=== PATIENT | female | born 1990 | race Caucasian/White ===

== ENCOUNTER → 2020-06-22 | Outpatient (REF) | payer OTHER ==
[~2020-06-22] MED LIST: ASPI81TA26 PO; PRENTAB53 PO; VITA-243 PO; progesterone supp VG
[2020-06-23 12:51] LABS: CHLAMYDIA DNA AMPLIFICATION NEGATIVE (NEGATIVE); GC DNA AMPLIFICATION NEGATIVE (NEGATIVE)
== END ==
LOC: M SFHCWAGY 10:37
PROVIDERS: ATTEND Advanced Practice Midwife
DX: Z11.3 Encounter for screening for infections with a predominantly sexual mode of transmission (principal); Z3A.11 11 weeks gestation of pregnancy
CPT/HCPCS: 87086; 87491; 87591; G0463

== ENCOUNTER → 2020-06-27 | Outpatient (REF) | payer OTHER ==
[2020-06-27 15:52] LABS: HEMOGLOBIN A1c 4.8 %
== END ==
LOC: M PLALAB 08:42
PROVIDERS: ATTEND Advanced Practice Midwife
DX: O09.291 Supervision of pregnancy with other poor reproductive or obstetric history, first trimester (principal); Z3A.00 Weeks of gestation of pregnancy not specified
CPT/HCPCS: 36415; 82950; 83036; G0463

== ENCOUNTER → 2020-07-09 | Outpatient (CLI) | payer OTHER | LOC: M LABSMTC 08:57 | PROVIDERS: ATTEND Anesthesiology | DX: Z01.812 Encounter for preprocedural laboratory examination (principal); Z20.822 Contact with and (suspected) exposure to COVID-19 ==

== ENCOUNTER 2020-07-14 08:09 | Day surgery (SDC) | payer OTHER ==
[~2020-07-14] VITALS: Ht 175.3 cm; Wt 77.6 kg
[~2020-07-14 08:09] MED LIST changes: +LIDOCAINE 1% MDV 20ML VIAL SQ PRN; +LIDOCAINE 2% 100MG/5ML SDV (FOR ANES.) As Ordered ONE; +LR 1,000 ML IV ONE; +fentaNYL 100 MCG/2 ML INJECTION (J3010) As Ordered ONE; +propofoL 200 MG/20 ML VIAL As Ordered ONE
[2020-07-14 09:01] LABS: HEMATOCRIT 35.9 % (36.0-47.0); HEMOGLOBIN 11.8 g/dl (12.0-15.5); MEAN CORPUSCULAR HEMOGLOBIN 28.8 pg (27.0-33.0); MEAN CORPUSCULAR HGB CONC 32.9 g/dl (32.0-36.5); MEAN CORPUSCULAR VOLUME 87.6 fl (80.0-96.0); PLATELET COUNT, AUTOMATED 242 10^3/uL (150-450); WHITE BLOOD COUNT 6.8 10^3/uL (4.0-10.0)
[2020-07-14] MEDS ORDERED: LIDOCAINE 1% SDV 30ML VIAL As Ordered ONE (09:05)
[2020-07-14] MEDS ORDERED: ONDANSETRON 4MG/2ML VIAL As Ordered ONE (09:40)
--- NOTE | 2020-07-14 09:41 | ROOPDOC ---
[facility] Report Of Operation Report of Operation DATE OF PROCEDURE: 07/14/2020 PREPROCEDURE DIAGNOSES: History of cervical insufficiency and . Currently 14+ weeks EGA POSTPROCEDURE DIAGNOSES: same PROCEDURE: Jang cerclage (history-indicated). 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 ESTIMATED BLOOD LOSS: 10 mL IV FLUIDS: 400 mL LR URINE OUTPUT: 10 mL (in and out catheter) FINDINGS: Approx 1.5cm cervical length in the vagina. Closed cervix. Cerclage knot at 12 o'clock at the level of the cervicovaginal junction. heart rate pre- and post-cerclage was 150bpm and 138bpm, respectively. PROCEDURE: The patient was counseled and consented on risks, benefits, indications and alternatives of the procedure. Informed consent was obtained. She was taken to the operating room with an IV running. She was moved to the operating table where IV/MAC anesthesia was administered without any difficulty. She was placed in the high lithotomy position. She was prepared and draped in the typical sterile fashion. A time out was performed per protocol. Attention was turned to the pelvis. The bladder was drained with in and out sterile catheter. A speculum was placed with good visualization of the cervix. Ring forceps were used at the anterior lip of the cervix to manipulate the cervix. Using 1-Prolene suture w/ CTX needle, a pursestring stitch was placed around the cervix at the level of the cervicovaginal junction. The knot was tied at 12:00. Minimal bleeding from the cervix was noted. There was no evidence of ruptured membranes. Holding pressure against the cervix with a sponge stick, the bleeding from the cervix ceased. All instruments were removed from the vagina. A sterile digital vaginal exam revealed a closed , thick cervix with less than a fingertip dilation (less than 1 cm). Sponge, needle and instrument counts were correct per protocol. She tolerated the entire procedure very well. She was transferred to the PACU in good and stable condition. DO GOLDIE Abraham JONATHAN R. DO Jul 14, 2020 09:41
[2020-07-14] MEDS ORDERED: LR 1,000 ML IV SCH (10:30)
[2020-07-14] MEDS ORDERED: fentaNYL 100 MCG/2 ML INJECTION (J3010) IV PRN (10:30)
[2020-07-14] MEDS ORDERED: ONDANSETRON 4MG/2ML VIAL IV PRN (10:30)
[2020-07-14 10:36] VITALS: BP 110/78
== END 2020-07-14 10:43 | disposition home or self-care (01) ==
LOC: M SDC 08:09
PROVIDERS: ATTEND Obstetrics & Gynecology
DX: O34.32 Maternal care for cervical incompetence, second trimester (principal); Z3A.14 14 weeks gestation of pregnancy
CPT/HCPCS: 36415; 59320; 85027; 86850; 86900; 86901; J3010

== ENCOUNTER → 2020-08-28 | Outpatient (CLI) | payer OTHER ==
[~2020-08-28] MED LIST changes: -LIDOCAINE 1% MDV 20ML VIAL SQ PRN; -LIDOCAINE 2% 100MG/5ML SDV (FOR ANES.) As Ordered ONE; -LR 1,000 ML IV ONE; -fentaNYL 100 MCG/2 ML INJECTION (J3010) As Ordered ONE; -propofoL 200 MG/20 ML VIAL As Ordered ONE
--- NOTE | 2020-08-29 05:36 | REP ---
INDICATION: ANATOMY COMPARISON: None. TECHNIQUE: Transabdominal obstetrical ultrasound with color Doppler evaluation. FINDINGS: Examination demonstrates a single live intrauterine in cephalic presentation. motion is identified by technologist. Placenta is noted posterior and grade 0 without evidence for placenta previa or abruption. Amniotic fluid volume is normal. Cervix measures 3.1 cm in length and appears closed.. Gestational age by LMP 21 weeks 1 day with JOSSE 01/07/2021. Gestational age by current measurements 21 weeks 6 days with JOSSE 01/02/2021. FHR equals 146 beats per minute. BPD: 5.4 cm at 22 weeks 2 days HC: 19.9 cm at 22 weeks 1 day AC: 16.9 cm at 21 weeks 6 days FL: 3.6 cm at 21 weeks 3 days HL: 3.4 cm at 21 weeks 3 days HC/AC: 1.18 Estimated weight 448 grams (77thpercentile). Anatomical assessment demonstrates normal structures including cranium, choroid plexus, cavum, cerebellum/posterior fossa, facial features, lungs, four-chamber heart/ventricular outflow tracts, diaphragm, stomach, cord insertion/three-vessel cord, kidneys/bladder, spine, and extremities. Echogenic focus within the left cardiac ventricle likely prominent chordae tendineae. IMPRESSION: Essentially normal examination as described above. <Electronically signed by Stanford Segal > 08/29/20 [id number]
== END ==
LOC: M WHC 14:33
PROVIDERS: ATTEND Obstetrics & Gynecology
DX: O09.292 Supervision of pregnancy with other poor reproductive or obstetric history, second trimester (principal); Z3A.21 21 weeks gestation of pregnancy

== ENCOUNTER → 2020-10-04 | Outpatient (REF) | payer OTHER ==
[2020-10-04 13:27] LABS: HEMATOCRIT 32.4 % (36.0-47.0); HEMOGLOBIN 10.5 g/dl (12.0-15.5); MEAN CORPUSCULAR HEMOGLOBIN 30.7 pg (27.0-33.0); MEAN CORPUSCULAR HGB CONC 32.4 g/dl (32.0-36.5); MEAN CORPUSCULAR VOLUME 94.7 fl (80.0-96.0); PLATELET COUNT, AUTOMATED 236 10^3/uL (150-450); RED BLOOD COUNT 3.42 10^6/uL (4.00-5.40)
== END ==
LOC: M PLALAB 09:35
PROVIDERS: ATTEND Obstetrics & Gynecology
DX: O09.292 Supervision of pregnancy with other poor reproductive or obstetric history, second trimester (principal)

== ENCOUNTER → 2020-11-27 | Outpatient (CLI) | payer OTHER ==
--- NOTE | 2020-11-27 13:21 | REP ---
INDICATION: POOR REPRODUCTIVE HX,HX DELIVERY,GROWTH COMPARISON: 08/28/2020 TECHNIQUE: Transabdominal obstetrical ultrasound with color Doppler evaluation. FINDINGS: Examination demonstrates a single live intrauterine in cephalic presentation. motion is identified by technologist. Placenta is noted posterior and grade 1 without evidence for placenta previa or abruption. Amniotic fluid volume is normal. Cervix measures 3.7 cm in length and appears closed. Selected gestational age: 34 weeks 1 day with JOSSE 01/07/2021. Gestational age by current measurements 35 weeks 0 days with JOSSE 01/01/2021. FHR equals 146 beats per minute. Estimated weight 2561 grams (69thpercentile). ZACKARY: 17.8 cm (8.1-24.8) Umbilical artery SD ratio: 2.63 (1.72-3.67). IMPRESSION: Single live intrauterine in cephalic presentation. No gross abnormalities are identified. <Electronically signed by Stanford Segal > 11/27/20 [id number]
== END ==
LOC: M WHC 12:20
PROVIDERS: ATTEND Obstetrics & Gynecology
DX: O09.293 Supervision of pregnancy with other poor reproductive or obstetric history, third trimester (principal)

== ENCOUNTER → 2020-12-06 | Outpatient (REF) | payer OTHER | LOC: M SFHCWAGY 13:03 | PROVIDERS: ATTEND Advanced Practice Midwife | DX: O09.293 Supervision of pregnancy with other poor reproductive or obstetric history, third trimester (principal) ==

== ENCOUNTER 2021-01-01 08:54 | Inpatient (IN) | payer OTHER ==
[~2021-01-01] VITALS: Ht 175.3 cm; Wt 105.6 kg
[2021-01-01] VITALS (36 sets, daily range): BP systolic 117–174; BP diastolic 57–94
[~2021-01-01 08:54] MED LIST changes: +DOCU-153 PO; +PROG1CAP9 PO; +TUMS500C PO
[2021-01-01] MEDS ORDERED: HOME MED LIST COMPLETE! XX SCH (09:30)
[2021-01-01] MEDS ORDERED: LACTATED RINGER'S 1000 ML IV STA (10:11)
[2021-01-01] MEDS ORDERED: METHYLERGONOVINE MALEATE 0.2 MG/ML VIAL (J2210) IM PRN (10:15)
[2021-01-01] MEDS ORDERED: LIDOCAINE 1% MDV 20ML VIAL INFIL PRN (10:15)
[2021-01-01] MEDS ORDERED: CARBOPROST TROMETHAMINE 250 MCG/ML AMP IM PRN (10:15)
[2021-01-01] MEDS ORDERED: TRANEXAMIC ACID INJection 1,000 MG in NS 100 ML IV PRN (10:15)
[2021-01-01] MEDS ORDERED: OXYTOCIN DRIP 30 UNITS in IV 1 EA IV PRN (10:15)
[2021-01-01 11:07] LABS: HEMATOCRIT 30.3 % (36.0-47.0); HEMOGLOBIN 9.9 g/dl (12.0-15.5); MEAN CORPUSCULAR HEMOGLOBIN 29.1 pg (27.0-33.0); MEAN CORPUSCULAR HGB CONC 32.7 g/dl (32.0-36.5); MEAN CORPUSCULAR VOLUME 89.1 fl (80.0-96.0); PLATELET COUNT, AUTOMATED 183 10^3/uL (150-450); WHITE BLOOD COUNT 8.5 10^3/uL (4.0-10.0)
--- NOTE | 2021-01-01 12:05 | HPEPDOC ---
Obstetrical History & Physical General Date of Admission Jan 01, 2021 at 08:54 Primary Care Physician: HONORIO CADET CNM History of Present Illness Madonna is a 30-year-old female who is at 39.1 weeks gestation with an JOSSE of 01/07/21 based off of her first trimester ultrasound. Her has bee n complicated by a history of a delivery due to cervical insufficiency at 30.4 weeks. She had a cerclage placed at 14 weeks this and removed at 36 weeks. She has also been using ASA 81 mg and vaginal progesterone. She presents for an elective IOL today. She reports active movement and regular contractions. Denies vaginal bleeding or leaking of fluid. Chief Complaint: Contractions, term, Induction of labor Information Provided By: Patient Age: 30 : 2 Term: 0 Pre-term: 1 Abortions: 0 Livin Care Care: Good Care Dating Final EDC: Jan 07, 2021 Final EDC by: 1st trimester (US) EGA at Admission: 39.1 Antepartum Course Diagnos(e)s history of delivery due to cervical insufficiency Cerclage placed in early second trimester. Height (inches): 69 Admission Weight (lbs.): 231 Past Medical History Past Obstetrical History : Past Obstetrical History: Primgravida Date of Delivery: Feb 25, 2019 Gestation: 30.4 Type of Delivery: Spontaneous Vaginal Del. 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 Past Medical History Medical History PCOS GERD Hyperplasia in 2014 resolved with D&C Borderline diabetic Surgical History: Dilatation and Curettage, Other (right knee surgery) Family History Significant Family History: Cancer (ovarian), Diabetes, Hypertension Social History Marital Status: Family situation: Spouse/partner home Psychosocial History: No pertinent psych hx * Smoker: non-smoker Alcohol: Denies Drugs: denies Abuse Violence Screening Have you been hit/kicked/slapp: No Have you been sexually assault: No Allergies Coded Allergies: Squash (Verified Allergy, Severe, throat closed, face red, 07/05/20) Uncoded Allergies: ZUCCHINI (Allergy, Severe, throat closes, red face, 07/05/20) Medications Scheduled Aspirin (Aspirin EC) 81 Mg Tablet.dr, 81 MG PO DAILY Calcium Carbonate (Tums) 200 Mg Tab.chew, 2 TAB PO QID for cough and congestion Docusate Sodium (Stool Softener) 100 Mg Capsule, 100 MG PO DAILY Vit,Calc76/Iron/Folic (Prenatabs Rx Tablet) 1 Each Tablet, 1 TAB PO DAILY Progesterone, Micronized (Progesterone) 200 Mg Capsule, 200 MG PO QPM Physical Examination Physical Examination GENERAL: Alert and oriented times three. BREAST: . ABDOMEN: Gravid and non-tender to touch. FETUS: Is vertex (VTX) by sterile vaginal examination (SVE), fetus is vertex (VTX) by Zane. HEART RATE: Regular rate and rhythm. LUNGS: Clear to auscultation (CTA). EXTREMITIES: No edema. No clonus. Deep tendon reflexes (DTRs) + . Vital Signs/I&O Vital Signs Date Time Temp Pulse Resp B/P (MAP) Pulse Ox O2 Delivery O2 Flow Rate FiO2 01/01/21 10:40 71 18 141/84 (103) 01/01/21 09:25 98.0 Laboratory Data 24H LABS Laboratory Tests 2 01/01/21 10:38: Serology Scanned Report Hepatitis B Testing 01/01/21 10:51: Nucleated Red Blood Cells % (auto) 0.0 CBC/BMP Laboratory Tests 01/01/21 10:51 Urine Culture: No Growth Pertinent Laboratoy Data Blood Type: A+ RBC Antibody Screen: Negative HIV: Negative Hepatitis B: Negative Hepatitis C: Negative Rapid Plasma Reagin: Nonreactive Rubella: Immune Chlamydia/Gonorrhea: Negative Group B Streptococcus: Negative Glucose Tolerance Test: 105 Anatomy Ultrasound Ultrasound Date: Nov 27, 2020 Placenta Location: Posterior Normal Anatomy: Yes Placenta Previa: No Estimated Weight (grams): 2561 Vaginal Examination Dilation: 4 cm Effacement: 80% Station: -1 Cervical Consistency: Soft Cervical Position: Middle Presentation: Cephalic presentation Assessment Heart Rate (FHR): 140 Variability: Moderate Accelerations: Positive Decelerations: None Tocometer Contractions: Yes Frequency: regular Multi-drug resistant Organism: No history of MDRO Assessment/Plan Assessment IUP at 39.1 weeks gestation Category I FHR tracing GBS negative elective induction of labor Plan Admit to L&D. OOB ad jennifer. Diet: regular diet now then change to clears if IV Pitocin is started or patient desires epidural. . Group B Streptococcus (GBS) negative. Labs and intravenous (IV) per unit protocol. Counseled on options for AROM vs IV Pitocin for induction of labor due to current contractions and cervical exam. Patient requested AROM. AROM to a scan amount of meconium fluid. Dr. Velasco notified of meconium. Anesthesia consult per patient's request. Lactated Ringers (LR): Bolus 800 mL prior to epidural, then at 125 mL/hr. Anticipate cervical change and . C-S as appropriate. HONORIO CADET CNM Jan 01, 2021 12:05
[2021-01-01] MEDS ORDERED: OXYTOCIN DRIP 30 UNITS in IV 1 EA IV SCH (12:40)
[2021-01-01] MEDS ORDERED: FENTANYL 2MCG/ML ROPIVACAINE 0.2% IN 0.9% NACL 100ML IVBAG As Ordered ONE (12:54)
[2021-01-01] MEDS: LR 1,000 ML IV SCH ×2 (13:01→15:24)
[2021-01-01] MEDS ORDERED: ONDANSETRON 4MG/2ML VIAL IV PRN (13:45)
[2021-01-01] MEDS ORDERED: EPIDURAL COMMENT XX SCH (13:45)
[2021-01-01] MEDS ORDERED: ePHEDrine SULFATE 25 MG/5 ML(5MG/ML) SYRINGE IV PRN (13:45)
[2021-01-01] MEDS ORDERED: LACTATED RINGER'S 1000 ML IV PRN (13:45)
[2021-01-01] MEDS ORDERED: FENTANYL/ROPIVACAINE/NACL BAG 100 ML EPIDURAL SCH (13:45)
[2021-01-01] MEDS ORDERED: REFRIGERATOR IV KEYS XX PRN (13:45)
[2021-01-01] MEDS ORDERED: EPIDURAL/PCA KEYS XX PRN (13:45)
[2021-01-01] MEDS ORDERED: diphenhydrAMINE 50MG/ML VIAL (J1200) IV PRN (13:45)
[2021-01-01] MEDS ORDERED: NALOXONE INJ 0.4MG/1ML VIAL (J2310 PER 1MG) IV PRN (13:45)
--- NOTE | 2021-01-01 17:34 | IPNPDOC ---
Obstetrical Progress Note Date of Service Jan 01, 2021 Subjective Patient reports feeling pressure. Objective Vital Signs Date Time Temp Pulse Resp B/P (MAP) Pulse Ox O2 Delivery O2 Flow Rate FiO2 01/01/21 14:27 58 18 125/58 (80) 01/01/21 13:41 98.5 Assessment Heart Rate (FHR): 135 Variability: Moderate Accelerations: Positive Decelerations: None Heart Rate Tracing: Category I Tocometer Contractions: Yes Sterile Vaginal Examination Dilation: 6 cm Effacement (%): 80% Station: -1 Cervical Consistency: Soft Cervical Position: Anterior Postion/Presentation: Cephalic presentation Assessment and Plan Age: 30 : 2 Term: 0 Pre-term: 1 Abortions: 0 Livin EGA at Admission: 39.1 Status: Reassuring Group B Streptococcus: Negative Anticipate: Vaginal Delivery Additional Comments IV Pitocin at 10 mu/cc. HONORIO CADET CNM Jan 01, 2021 17:34
--- NOTE | 2021-01-01 20:26 | DNPDOC ---
[facility] Delivery Note Delivery Note DATE OF DELIVERY: 01/01/21 at 1948 PREDELIVERY DIAGNOSIS: 39-1/7 weeks' gestation and labor with augmentation. POST DELIVERY DIAGNOSIS: Delivered. PROCEDURE: Spontaneous vaginal delivery. FLAKE OR SHRED ROLL OPERATOR: Honorio Natarajan CNM, KATIA ANESTHESIA: epidural. ESTIMATED BLOOD LOSS: 300 mL. FINDINGS: 7 pounds 14 ounces; 3580 grams; male , Score 7/9, meconium, nuchal cord times 1 tight, manual removal of placenta. DELIVERY SUMMARY: Madonna is a 30-year-old female who is now a at 39.1 weeks gestation who presented to L&D for induction of labor and found to be having regular contractions and her cervix was 4 cm. AROM to thick meconium and augmented with IV Pitocin. Patient progressed to fully dilated at 1935 and pushed to a living male in the OA position with restitution to ROT. A tight nuchal cord was noted. The mouth was suctioned on the perineum due to thick meconium. The anterior shoulder delivered with ease and the corpus immediately followed. The baby was placed on the maternal abdomen active and crying with stimulation. The cord was clamped x2 after pulsation ceased and cut by the FOB. A 3-vessel cord was noted. IV Pitocin bolus started. Avulsion of cord occurred and a manual removal of half of the placenta was done and placenta was removed completely and intact at 1999. Fundal massage done and uterus was noted to be firm at umbilicus. The vagina, perineum, and cervix was inspected and found to have a first degree perineal laceration that was repaired with a 3.0 Vicryl. They plan on naming him Juan Luis. Both mom and baby are in stable condition. All counts of instruments are sponges are correct. HONORIO NATARAJAN CNM Jan 01, 2021 20:26
[2021-01-01] MEDS ORDERED: MEASLES,MUMPS,RUBELLA VACCINE INJ (MMR-II) (90707) SC SCH (21:05)
[2021-01-01] MEDS ORDERED: ACETAMINOPHEN TAB 650MG DOSE (2X325MG) PO PRN (21:05)
[2021-01-01] MEDS ORDERED: DOCUSATE SODIUM 100MG CAPSULE PO PRN (21:05)
[2021-01-01] MEDS ORDERED: ANUSOL HC CREAM 30GM TOP PRN (21:05)
[2021-01-01] MEDS ORDERED: IBUPROFEN 600MG TAB PO PRN (21:05)
[2021-01-01] MEDS ORDERED: ACETAMINOPHEN 500 MG TAB PO PRN (21:05)
[2021-01-01] MEDS ORDERED: RHOGAM 300 MCG (1500 IU) INJ (J2790) IM SCH (21:05)
[2021-01-01] MEDS ORDERED: MOM 30ML SUSPENSION UDC PO PRN (21:05)
[2021-01-01] MEDS ORDERED: METHYLERGONOVINE MALEATE 0.2 MG TAB PO PRN (21:05)
[2021-01-01] MEDS ORDERED: DIBUCAINE 1% OINTMENT 30GM TOP PRN (21:05)
[2021-01-01] MEDS: IBUPROFEN 800 MG TAB PO PRN (22:06)
[2021-01-02 06:00] VITALS: BP 143/81
[2021-01-02] MEDS: PRENATAL VITAMINS CHEWABLE TABLET PO SCH (09:00)
[2021-01-02 18:23] VITALS: BP 139/93
[2021-01-02] MEDS: IBUPROFEN 800 MG TAB PO PRN (21:10)
[2021-01-03 06:00] VITALS: BP 133/66
[2021-01-03] MEDS: PRENATAL VITAMINS CHEWABLE TABLET PO SCH (07:53)
[2021-01-03 08:00] LABS: HEMOGLOBIN 8.8 g/dl (12.0-15.5); MEAN CORPUSCULAR HEMOGLOBIN 28.9 pg (27.0-33.0); MEAN CORPUSCULAR HGB CONC 31.4 g/dl (32.0-36.5); MEAN CORPUSCULAR VOLUME 92.1 fl (80.0-96.0); PLATELET COUNT, AUTOMATED 160 10^3/uL (150-450); RED BLOOD COUNT 3.04 10^6/uL (4.00-5.40); WHITE BLOOD COUNT 8.9 10^3/uL (4.0-10.0)
--- NOTE | 2021-01-03 08:17 | IPNPDOC ---
Progress Note Date of Service: Jan 03, 2021 Day#: 2 Progress Note SUBJECT: Status post . Only complaint is generalized edema particularly lower extremities. She has been ambulating, voiding spontaneously without issue and tolerating regular diet. Lochia decreasing/minimal. Pain is well- controlled. Denies headache, visual changes, right upper quadrant pain, shortness breath or chest pain. Patient highly desirous of discharge to home today OBJECTIVE: VITAL SIGNS: Currently within normal limits but intermittently hypertensive, afebrile. Alert and oriented times three. Abdomen: Fundus firm at U-2. Soft, NTTP. Extremities: 2-3+ pitting edema bilateral lower extremities ASSESSMENT: Status post uncomplicated spontaneous vaginal delivery. Vitals within normal limits, afebrile, hemodynamically stable with no evidence of infection. PLAN: Tylenol and Motrin for pain. PE lab panel ordered Routine instructions/precautions reviewed. Consider discharge if labs are normal and patient's blood pressures remain normotensive Routine PP visit in 6 weeks in clinic. VS, I&O, 24H, Fishbone Vital Signs/I&O Vital Signs Date Time Temp Pulse Resp B/P (MAP) Pulse Ox O2 Delivery O2 Flow Rate FiO2 01/03/21 06:00 96.9 81 16 133/66 (88) 97 Room Air Laboratory Data 24H LABS Laboratory Tests 2 01/03/21 07:41: Nucleated Red Blood Cells % (auto) 0.0 CBC/BMP Laboratory Tests 01/03/21 07:41 JULIO MORALES DO Jan 03, 2021 08:17
[2021-01-03 08:27] LABS: ALBUMIN 1.9 GM/DL (3.2-5.2); ALT/SGPT 11 U/L (12-78); BILIRUBIN,TOTAL 0.3 MG/DL (0.2-1.0); BLOOD UREA NITROGEN 4 MG/DL (7-18); CALCIUM LEVEL 7.9 MG/DL (8.5-10.1); CARBON DIOXIDE LEVEL 26 MEQ/L (21-32); CHLORIDE LEVEL 113 MEQ/L (98-107); GLOMERULAR FILTRATION RATE > 60.0 (>60); GLUCOSE, FASTING 69 MG/DL (70-100); LDH LACTATE DEHYDROGENASE 282 U/L (84-246); POTASSIUM SERUM 3.8 MEQ/L (3.5-5.1); SODIUM LEVEL 145 MEQ/L (136-145); TOTAL PROTEIN 4.6 GM/DL (6.4-8.2); URIC ACID 3.6 MG/DL (2.6-6.0)
[2021-01-03 09:06] LABS: TOTAL PROTEIN,RANDOM URINE 57.2 MG/DL (0.0-12.0)
[2021-01-03 10:43] VITALS: BP 150/85
== END 2021-01-03 11:45 | disposition home or self-care (01) | DRG 807 ==
LOC: M LDI 08:54 → M OBS 22:05
PROVIDERS: ADMIT Advanced Practice Midwife; ATTEND Advanced Practice Midwife
PROC: 10E0XZZ Delivery of Products of Conception, External Approach (ICD-10-PCS; principal; 2021-01-01)
PROC: 10D17Z9 Manual Extraction of Products of Conception, Retained, Via Natural or Artificial Opening (ICD-10-PCS; 2021-01-01)
PROC: 10907ZC Drainage of Amniotic Fluid, Therapeutic from Products of Conception, Via Natural or Artificial Opening (ICD-10-PCS; 2021-01-01)
PROC: 0HQ9XZZ Repair Perineum Skin, External Approach (ICD-10-PCS; 2021-01-01)
DX: O99.62 Diseases of the digestive system complicating childbirth (principal); Z37.0 Single live birth; K21.9 Gastro-esophageal reflux disease without esophagitis; E28.2 Polycystic ovarian syndrome; O77.0 Labor and delivery complicated by meconium in amniotic fluid; O69.1XX0 Labor and delivery complicated by cord around neck, with compression, not applicable or unspecified; O73.0 Retained placenta without hemorrhage; O70.0 First degree perineal laceration during delivery; O99.284 Endocrine, nutritional and metabolic diseases complicating childbirth; Z3A.39 39 weeks gestation of pregnancy

== ENCOUNTER 2021-01-05 12:30 | Inpatient (IN) | payer OTHER ==
[~2021-01-05] VITALS: Ht 175.3 cm; Wt 92.6 kg
--- NOTE | 2021-01-05 13:37 | REP ---
INDICATION: DYSPNEA/COUGH. COMPARISON: None. TECHNIQUE: Single portable AP view of the chest was performed. FINDINGS: There is no acute infiltrate or pulmonary edema. Lungs are clear. The heart is not significantly enlarged. The mediastinal silhouette is unremarkable. The visualized osseous structures are intact. IMPRESSION: No acute pulmonary disease. <Electronically signed by Dontae Campos > 01/05/21 1994
[2021-01-05 14:59] LABS: VENOUS BASE EXCESS -1.4 (-2.0-2.0); VENOUS HCO3 23.8 MEQ/L (23.0-27.0); VENOUS O2 SATURATION 56.2 % (60.0-80.0); VENOUS PARTIAL PRESSURE CO2 41.9 mmHg (38.0-50.0); VENOUS PARTIAL PRESSURE O2 31.9 mmHg (30.0-50.0); VENOUS PH 7.372 UNITS (7.330-7.430); VENOUS STANDARD HCO3 22.6 MEQ/L; VENOUS TOTAL CO2 25.1 MEQ/L (24.0-28.0)
[2021-01-05 15:09] LABS: BASO % 0.1 % (0.0-1.0); EOS # 0.1 10^3/uL (0.0-0.5); HEMATOCRIT 29.1 % (36.0-47.0); LYMPH # 1.4 10^3/uL (1.5-5.0); LYMPH % 19.5 % (24.0-44.0); MEAN CORPUSCULAR HEMOGLOBIN 28.7 pg (27.0-33.0); MEAN CORPUSCULAR HGB CONC 30.9 g/dl (32.0-36.5); MEAN CORPUSCULAR VOLUME 92.7 fl (80.0-96.0); MONO # 0.5 10^3/uL (0.0-0.8); MONO % 7.4 % (2.0-8.0); NEUTROPHILS % 70.7 % (36.0-66.0); PLATELET COUNT, AUTOMATED 215 10^3/uL (150-450); RED BLOOD COUNT 3.14 10^6/uL (4.00-5.40); WHITE BLOOD COUNT 7.1 10^3/uL (4.0-10.0)
[2021-01-05 15:37] LABS: ALBUMIN 2.4 GM/DL (3.2-5.2); ALT/SGPT 17 U/L (12-78); BILIRUBIN,DIRECT 0.1 MG/DL (0.0-0.2); BILIRUBIN,TOTAL 0.4 MG/DL (0.2-1.0); NT-PRO BNP 783 PG/ML (<125); TOTAL PROTEIN 5.6 GM/DL (6.4-8.2)
[2021-01-05 16:08] LABS: CK-MB VALUE MASS 3.5 NG/ML (<3.6); CPK CREATINE PHOSPHOKINASE 352 U/L (26-192); MB/CK RELATIVE INDEX 0.99 (< OR =4); TROPONIN I < 0.02 NG/ML (< 0.10)
[2021-01-05] MEDS ORDERED: ISOVUE-370 76% 100ML VIAL As Ordered ONE (16:40)
--- NOTE | 2021-01-05 17:42 | REP ---
INDICATION: calf tenderness COMPARISON: None. FINDINGS: The deep veins demonstrate normal compression, normal Doppler color flow and normal Doppler waveforms with respiration augmentation from the popliteal veins to the common femoral veins bilaterally. The proximal posterior tibial and peroneal veins could not be identified by ultrasound on the right or the left because of bilateral lower extremity edema. IMPRESSION: There is no deep vein thrombus in the right or left lower extremities. <Electronically signed by Dontae Pringle > 01/05/21 [id number]
--- NOTE | 2021-01-05 17:59 | REP ---
INDICATION: rule out PE. COMPARISON: None. TECHNIQUE: Chest CT with IV contrast, pulmonary embolus protocol. FINDINGS: There are no emboli in the pulmonary trunk or right and left pulmonary arteries. There are no emboli in the pulmonary artery lobe or segment branches. There are no infiltrates or pleural effusions. There are no lung masses or nodules. The thoracic aorta is unremarkable. The cardiac size is enlarged. There is a pericardial effusion measuring up to 8 mm in depth The visualized upper abdominal contents are unremarkable except for a punctate gallbladder calculus. Along the left cardiac margin. IMPRESSION: There are no pulmonary emboli. Cardiomegaly and pericardial effusion as described. Punctate gallbladder calculus. <Electronically signed by Dontae Pringle > 01/05/21 [id number]
[2021-01-05 21:00] VITALS: BP_SYST 159; BP_SYST 167; BP_DIAS 103; BP_DIAS 94
[2021-01-05] MEDS ORDERED: PERCOCET 5MG/325MG TAB PO PRN ×2 (21:00)
[2021-01-05] MEDS ORDERED: ACETAMINOPHEN TAB 650MG DOSE (2X325MG) PO PRN (21:00)
[2021-01-05] MEDS ORDERED: NORCO, ANEXSIA 5/325MG TABLET (HYDROcodone/ACETAMINOPHEN) PO PRN (21:00)
[2021-01-05] MEDS ORDERED: ONDANSETRON 4MG/2ML VIAL IV PRN (21:00)
[2021-01-05] MEDS ORDERED: BISACODYL 10 MG SUPP PR PRN (21:00)
[2021-01-05] MEDS: COLCHICINE 0.6 MG TABLET PO SCH (21:00)
[2021-01-05] MEDS ORDERED: LABETALOL 100MG TAB PO SCH (21:00)
[2021-01-05] MEDS ORDERED: LEVALBUTEROL 1.25 MG/0.5 ML CONCENTRATE NEB NEB PRN (21:00)
[2021-01-05] MEDS ORDERED: KCL 20MEQ IN D5/NS 1000ML 1,000 ML IV SCH (21:00)
[2021-01-05] MEDS ORDERED: MIDAZOLAM INJ 2MG/2ML VIAL (J2250 PER 1MG) As Ordered ONE (21:04)
[2021-01-05] MEDS ORDERED: flumazeniL 0.5 MG/5 ML VIAL As Ordered ONE (21:04)
[2021-01-05] MEDS ORDERED: LIDOCAINE 1% MDV 20ML VIAL As Ordered ONE ×3 (21:05→22:12)
[2021-01-05] MEDS ORDERED: DOK100TA2 PO (21:09)
[2021-01-05] MEDS ORDERED: HOME MED LIST COMPLETE! XX SCH (21:10)
[2021-01-05 22:30] VITALS: BP 183/89
[2021-01-05 22:45] VITALS: BP 166/85
[2021-01-05] MEDS ORDERED: FUROSEMIDE 40MG/4ML VIAL (J1940) IV ONE (22:50)
[2021-01-05] MEDS ORDERED: POTASSIUM CHLORIDE 10 MEQ SR TABLET PO ONE (22:50)
[2021-01-05 23:00] VITALS: BP 170/81
[2021-01-05] MEDS ORDERED: LIDOCAINE 1% MDV 50ML VIAL SC ONE (23:35)
[2021-01-05] MEDS ORDERED: LIDOCAINE 1% MDV 20ML VIAL SC ONE (23:45)
[2021-01-05] MEDS: DOCUSATE SODIUM 100MG CAPSULE PO SCH (23:48)
[2021-01-05] MEDS: KETOROLAC 30 MG/ML 1ML VIAL IV SCH (23:49)
[2021-01-06] VITALS (23 sets, daily range): BP systolic 125–197; BP diastolic 76–107
[2021-01-06] LABS: MAGNESIUM LEVEL 1.8 MG/DL (1.8-2.4)
[2021-01-06] MEDS: LEVALBUTEROL 1.25 MG/0.5 ML CONCENTRATE NEB NEB SCH ×4 (00:57→19:18)
[2021-01-06] MEDS ORDERED: methylPREDNISolone 125MG 2ML VIAL IV ONE ×2 (01:30→11:30)
--- NOTE | 2021-01-06 01:38 | HPEPDOC ---
[facility] Medical History & Physical Date of Admission Jan 06, 2021 Date of Service: Jan 06, 2021 History and Physical CHIEF COMPLAINT: Lower extremity edema HISTORY OF PRESENT ILLNESS: Mrs. Klein is a pleasant 30-year-old female, 5 days , delivered at 39 weeks, presented to the ER with worsening lower extremity edema and chest discomfort. Patient developed edema several weeks prior to that has been progressively getting worse. She has no history of preeclampsia. She discussed her edema with her QUALITY CONTROL CLERK, Dr. Watters who recommended the patient seek help in the emergency room. She was found to be hyp ertensive to 160/83. Lab works impressive for BNP of 352, trop < 0.02. CTA showed a pericardial effusion. Patient had a stat echo performed in the ER, with concern for pericardial effusion as well as cardiac tamponade. Dr. Mueller was consulted from the ER. Advised the patient be taken to ICU for possible pericardial window in the OR. I was informed of the patient's arrival to ICU by Dr. Mueller, and was not made aware of admission by ER. I discussed the findings with Dr. Mueller, believes there is no cardiac tamponade on review of the echo. He placed an arterial line for BP monitoring, ordered 40 mg of IV Lasix, and scheduled repeat echo in the morning At this time, patient denies any shortness of breath, chest pain, palpitations, scaly fevers or chills, nausea, vomiting or diarrhea. Her only complaint is lower extremity edema. I discussed the case with Dr. Oviedo, and placed a formal consult, however he informed me that he will not be seeing the patient. He believes the issues is funes rgical. He recommended starting 125 mg solumedrol IV as well as colchicine 0.6 mg BID. PAST MEDICAL HISTORY: PCOS GERD Endometrial hyperplasia in 2014, treated with D&C Borderline DM2. PAST SURGICAL HISTORY: R knee surgery D&C SOCIAL HISTORY: Non smoker Non drinker No illicit drug use. FAMILY HISTORY: History of ovarian ca DM2 Hypertension. ALLERGIES: Please see below. REVIEW OF SYSTEMS: 10 point ROS conducted, relevant findings are noted in HPI. HOME MEDICATIONS: Please see below. PHYSICAL EXAMINATION: VITAL SIGNS: please see below General: NAD, comfortable HEENT: PERRLA, EOMI, sclerae clear Neck: supple, normal ROM, no JVD Respiratory: lungs CTAB, no wheeze, no rales, no crackles CVS: RRR, normal S1, S2, no murmurs Abdo: soft, no masses, no hepatosplenomegaly, BS+, no rebound tenderness Extremities: 3+ pitting edema of bilateral lower extremities. MSK: no joint deformities, normal ROM Neuro: no focal neuro deficits, moving all 4 extremities, CN2-12 intact. Strength 5/5 in all 4 extremities. No nystagmus. Psych: calm, cooperative, AAO x 3 LABORATORY DATA: See below. IMAGING: CXR (01/05/21): IMPRESSION: No acute pulmonary disease. CTA chest (01/05/21): FINDINGS: There are no emboli in the pulmonary trunk or right and left pulmonary arteries. There are no emboli in the pulmonary artery lobe or segment branches. There are no infiltrates or pleural effusions. There are no lung masses or nodules. The thoracic aorta is unremarkable. The cardiac size is enlarged. There is a pericardial effusion measuring up to 8 mm in depth The visualized upper abdominal contents are unremarkable except for a punctate gallbladder calculus. Along the left cardiac margin. IMPRESSION: There are no pulmonary emboli. Cardiomegaly and pericardial effusion as described. Punctate gallbladder calculus. Duplex bilateral lower extremities (01/06/21): IMPRESSION: There is no deep vein thrombus in the right or left lower extremities. MICROBIOLOGY: Please see below. ASSESSMENT: Mrs. Klein is a pleasant 30-year-old female, 5 days , delivered at 39 weeks, presented to the ER with worsening lower extremity edema and chest discomfort. Concern for cardiac tamponade on echo read. Pericardial window defered per Dr. Mueller, with repeat echo scheduled for AM. Per Dr. Oviedo, recommended starting solumedrol and colchicine. As patient is hypertensive, concern for post- preeclampsia. BP monitoring via arterial line. . PLAN: #Bilateral lower extremity edema possible 2/2 cardiac tamponade, peripartum cardiomyopathy - patient presented with worsening edema, chest discomfort - no trop elevation noted, chest pain resolved. BNP mildly elevated at 352 - CTA chest showing pericardial effusion, confirmed on stat echo in ER. Concern for cardiac tamponade - Dr. Mueller was consulted from ER, placed admit orders to ICU. Reviewed echo, does not see strong evidence for tamponade, defered cardiac window - repeat echo scheduled for 0800 on 01/06/21 - I discussed the case with Dr. Oviedo as well, consult placed but advised me that he will not be seeing the patient - recommended starting solumedrol 125 mg IV as well as colchicine 0.6 mg BID - I advised that patient should not breast feed at this time, and formula was provided for baby. #Hypertension, possible post- preeclampsia - patient has no headache, visual change or other neurological findings - d/w Dr. Watters - ok to give Mag if low, and to treat BP with labetalol - art line showing SBP 140. - started patient on labetalol 100 mg BID - will give IV labetalol prn for SBP > 160. Dispo: admitted to ICU. Admission expected to last > 2 midnights. DC pending clinical improvement. Expected to return home. Vital Signs Vital Signs Date Time Temp Pulse Resp B/P (MAP) Pulse Ox O2 Delivery O2 Flow Rate FiO2 01/05/21 20:20 98.8 76 18 150/90 (110) 99 Room Air Laboratory Data Labs 24H Laboratory Tests 2 01/05/21 12:58: Immature Granulocyte % (Auto) 0.3, Neutrophils (%) (Auto) 70.7H, Lymphocytes (%) (Auto) 19.5L, Monocytes (%) (Auto) 7.4, Eosinophils (%) (Auto) 2.0, Basophils (%) (Auto) 0.1, Neutrophils # (Auto) 5.0, Lymphocytes # (Auto) 1.4L, Monocytes # (Auto) 0.5, Eosinophils # (Auto) 0.1, Basophils # (Auto) 0.0, Nucleated Red Blood Cells % (auto) 0.0, Total Bilirubin 0.4, Direct Bilirubin 0.1, Aspartate Amino Transf (AST/SGOT) 26, Alanine Aminotransferase (ALT/SGPT) 17, Alkaline Phosphatase 123H, Total Creatine Kinase 352H, Creatine Kinase MB 3.5, Creatine Kinase MB Relative Index 0.99, Troponin I < 0.02, OO-Bpb-V-Type Natriuretic Pept nyla 783H, Total Protein 5.6#L, Albumin 2.4#L, Albumin/Globulin Ratio 0.8L, Thyroid Stimulating Hormone (TSH) 2.510 01/05/21 14:38: Blood Gas Bicarbonate Standard 22.6, Venous Blood pH 7.372, Venous Blood Partial Pressure CO2 41.9, Venous Blood Partial Pressure O2 31.9, Venous Blood Total Carbon Dioxide 25.1, Venous Blood HCO3 23.8, Venous Blood Oxygen Saturation 56.2L, Venous Blood Base Excess -1.4 01/05/21 15:04: POC Glucose (Misc Panel) 75, POC Sodium (Misc Panel) 144, POC Potassium (Misc Panel) 3.3L, POC Chloride (Misc Panel) 108, POC Total CO2 (Misc Panel) 23.0, POC Blood Urea Nitrogen (Misc Panel 4L, POC Ionized Calcium (Misc Panel) 4.4L, POC Creatinine (Misc Panel) 0.5L, POC Hematocrit (Misc Panel) 27.0L 01/05/21 15:06: POC Troponin I (Misc) 0.01 01/05/21 18:15: POC Troponin I (Misc) 0.01 01/05/21 23:34: Magnesium Level 1.8 CBC/BMP Laboratory Tests 01/05/21 12:58 Microbiology Microbiology 01/05/21 Respiratory Virus Panel (PCR) ([facility]) - Final, Complete Home Medications Scheduled PRN Docusate Sodium (Dok) 100 Mg Tablet, 100 MG PO DAILY PRN for CONSTIPATION Allergies Coded Allergies: Squash (Verified Allergy, Severe, throat closed, face red, 07/05/20) Uncoded Allergies: ZUCCHINI (Allergy, Severe, throat closes, red face, 07/05/20) DANIS PASTOR MD Jan 06, 2021 01:38
[2021-01-06] MEDS ORDERED: MAG SULF 1GM/100ML (MAG RUN) 1 GM in IV 1 EA IV ONE (02:00)
[2021-01-06 03:01] LABS: TROPONIN I < 0.02 NG/ML (< 0.10)
[2021-01-06 05:20] LABS: BASO % 0.2 % (0.0-1.0); EOS # 0.1 10^3/uL (0.0-0.5); EOS % 1.8 % (0.0-3.0); HEMATOCRIT 26.1 % (36.0-47.0); HEMOGLOBIN 8.3 g/dl (12.0-15.5); LYMPH # 1.4 10^3/uL (1.5-5.0); LYMPH % 22.4 % (24.0-44.0); MEAN CORPUSCULAR HEMOGLOBIN 28.9 pg (27.0-33.0); MEAN CORPUSCULAR HGB CONC 31.8 g/dl (32.0-36.5); MEAN CORPUSCULAR VOLUME 90.9 fl (80.0-96.0); MONO # 0.5 10^3/uL (0.0-0.8); MONO % 7.3 % (2.0-8.0); NEUTROPHILS # 4.2 10^3/uL (1.5-8.5); PLATELET COUNT, AUTOMATED 190 10^3/uL (150-450); RED BLOOD COUNT 2.87 10^6/uL (4.00-5.40); WHITE BLOOD COUNT 6.2 10^3/uL (4.0-10.0)
[2021-01-06] MEDS: KETOROLAC 30 MG/ML 1ML VIAL IV SCH ×4 (05:38→23:26)
[2021-01-06 05:53] LABS: BLOOD UREA NITROGEN 5 MG/DL (7-18); CALCIUM LEVEL 7.5 MG/DL (8.5-10.1); CARBON DIOXIDE LEVEL 26 MEQ/L (21-32); CHLORIDE LEVEL 113 MEQ/L (98-107); CREATININE FOR GFR 0.52 MG/DL (0.55-1.30); GLOMERULAR FILTRATION RATE > 60.0 (>60); GLUCOSE, FASTING 74 MG/DL (70-100); MAGNESIUM LEVEL 1.8 MG/DL (1.8-2.4); POTASSIUM SERUM 3.3 MEQ/L (3.5-5.1); SODIUM LEVEL 145 MEQ/L (136-145)
--- NOTE | 2021-01-06 07:43 | ECGEPIP ---
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
[2021-01-06] MEDS ORDERED: LABETALOL 100MG/20ML VIAL IV PRN (08:25)
--- NOTE | 2021-01-06 08:41 | REP ---
INDICATION: pericardial effusion. COMPARISON: Portable chest dated 01/05/[address] dated 01/05/2021 TECHNIQUE: Upright PA and lateral chest. FINDINGS: The lung melendrez are clear. Cardiac size is normal. On the comparison CT the cardiac size appears enlarged and there was a pericardial effusion. The ashok, mediastinum and skeletal structures are unremarkable. IMPRESSION: Essentially negative PA and lateral chest Cardiac size appears normal on the PA and lateral views today, however, cardiac size was enlarged on the comparison CT and there was a pericardial effusion on the comparison CT. <Electronically signed by Dontae Pringle > 01/06/21 0837
[2021-01-06] MEDS ORDERED: NIFEdipine 10 MG CAP PO PRN (08:55)
[2021-01-06] MEDS ORDERED: predniSONE 20 MG TAB PO SCH (09:00)
[2021-01-06] MEDS ORDERED: POTASSIUM CHLORIDE 10 MEQ SR TABLET PO ONE ×3 (09:00→20:00)
--- NOTE | 2021-01-06 09:02 | ECHO ---
ECHOCARDIOGRAM DATE OF PROCEDURE: 01/05/2021 Age: 30 Gender: Female Height: 69 inches Weight: 222 pounds Body Surface Area 2.16 m2 PATIENT LOCATION: Inpatient, currently in the Emergency Room. REFERRING PHYSICIAN: DIANNE HUNT M.D. INDICATION: Chest pain/pericardial effusion. MEASUREMENTS: 2D Measurements: RV - 3.2 cm LV - 5.5 cm Septum 0.8 cm Posterior wall 0.8 cm Aortic root 3.2 cm LA - 4.0 cm LVEF 65% Doppler Measurements: AV - 1.56 m/sec MV-E 117, A 76, EA ratio 1.5 Early mitral deceleration time 215 msec E prime 9.2 medial, A prime medial 6, E prime lateral 12 Average E/E prime ratio 11/PCWP 15.6 mmHg PV 0.8 m/sec Pulmonary artery acceleration time 130 msec RVSP 25 mmHg IVC 2.2 cm COMMENTS: Normal sinus rhythm without interventricular conduction disturbance. M-mode and 2-dimensional echocardiography was performed with pulse, continuous wave and color flow and tissue Doppler studies. Normal left ventricular sizes, wall thickness and wall motion. Left atrial size upper limits of normal with currently normal Doppler assessment of LV diastolic function and estimated mean left atrial pressure. Normal right heart chamber sizes and motion with some inversion. Her IVC was slightly dilated with reduced respiratory collapse in keeping with an elevated central venous pressure. Normal aortic dimensions. Normal appearing and functioning volvulus structures. No apparent intracardiac mass. Fairly large pericardial effusion measuring 1.4 cm posteriorly, 0.6 cm anteriorly and 1.1 cm laterally. There was in addition to right atrial free wall inversion intermittently she had significant respiratory variation to Doppler flow signals in keeping with cardiac compression. A preliminary report of this study was relayed to Dr. Hunt. We suggested a consultation with Dr. Nahum Mueller, Thoracic Surgery, to consider pericardiocentesis. cc: DO NAHUM FREIRE M.D.
[2021-01-06] MEDS ORDERED: MAG Sulf (L&D) 4 GM/100 ML 4 GM in IV 1 EA IV ONE (09:30)
--- NOTE | 2021-01-06 09:53 | ECGEPIP ---
[facility] Test Date: 2021-01-06 Pat Name: KENYON MARCANO Department: Room: [place] [address] Gender: Female [employer]: REGLA : 1990 Requested By: Nahum Munoz Order Number: [id number] Reading MD: Kelsey Swift Measurements Intervals [place] Rate: 80 P: 40 [place]: 148 QRS: 17 QRSD: 78 T: 30 QT: 378 QTc: 435 Interpretive Statements Normal sinus rhythm R WAVE PROGRESSION IMPROVED C/W 01/05/21 Electronically Signed on 01-06-2021 9:52:47 EDT by Kelsey Swift
[2021-01-06] MEDS ORDERED: MAG Sulf (OBGYN) 20GM/500ML 20,000 MG in IV 1 EA IV SCH (10:00)
[2021-01-06] MEDS ORDERED: FUROSEMIDE 40MG/4ML VIAL (J1940) IV ONE (10:00)
[2021-01-06] MEDS: COLCHICINE 0.6 MG TABLET PO SCH ×2 (10:01→20:50)
[2021-01-06] MEDS: DOCUSATE SODIUM 100MG CAPSULE PO SCH ×2 (10:02→20:49)
[2021-01-06] MEDS: MOM 30ML SUSPENSION UDC PO SCH (10:02)
[2021-01-06] MEDS: PANTOPRAZOLE 40MG TAB (PROTONIX) PO SCH (10:03)
[2021-01-06 10:52] LABS: C REACTIVE PROTEIN QUANTITATIV 1.62 MG/DL (0.00-0.30); RHEUMATOID FACTOR QUANT < 10.0 IU/ML (<15.0)
[2021-01-06 10:58] LABS: INR 0.97; PROTHROMBIN TIME 13.3 SECONDS (12.7-14.5)
[2021-01-06] MEDS: HEPARIN SOD (PORCINE) 5000UNITS/ML 1ML VIAL/SYRINGE SC SCH ×2 (11:36→20:52)
--- NOTE | 2021-01-06 11:41 | IPN ---
PROGRESS NOTE DATE: 01/06/2021 Ms. Klein has done quite well overnight. I did give her Lasix last night, and she has put out 3000 mL. She is still quite hypertensive. She is not complaining of shortness of breath. I see very little respiratory variation in the arterial line. Her vital signs show a maximum temperature (T-max) of 98.2 with a heart rate that ranges between 70-100 now in a sinus rhythm. Premature ventricular contractions (PVCs) have disappeared. Respiratory rate is constant at 20 without the use of accessory muscles, and she is 97%-99% saturated on room air with a blood pressure that is ranging between 197/107 to 136/84. Her intake and output for the past 24 hours have been recorded as 3050 out and nothing in. The intake and output are obviously incorrect with regard to input, as she has been on 75 mL of intravenous (IV) D5 normal saline with 20 of potassium. In the best case scenario, her intake and output are negative 1999. PHYSICAL EXAMINATION: Her lungs show normal vesicular sounds without wheezes, rhonchi, or rales. Cardiac exam shows the same 2/6 ejection murmur at the right sternal border. There is no radiation to the carotids. I cannot feel her point of maximal impulse (PMI). S1 and S2 are normal. Abdomen is soft and nontender. Bowel sounds are positive. There is no hepatomegaly. No costovertebral angle (CVA) tenderness. Extremities show still 4+ pretibial edema. Her calf is less edematous today than it was yesterday, and it is not as tight. Skin is warm, dry, and perfused without cyanosis or mottling, including that of the nailbeds and knees. Neck is supple. There is no jugular venous distention. No subcutaneous emphysema. Trachea is midline. Mouth shows the mucous membranes to be pink and moist. Lips and commissures without lesions. No thrush. Eyes show her pupils to be equal and reactive. Extraocular motion intact. Sclerae anicteric. Neurologic shows II-XII intact. Normal gross motor, gross sensation intact. Gait is not tested. Psychiatric shows her to be awake, alert, and oriented times three with appropriate mood and affect and conversational. Her white count today is 6.2 with a hemoglobin and hematocrit of 8.3 and 26.1, respectively. Platelet count is 190 and stable. Differential shows 68% neutrophils, 22% lymphocytes, 7% monocytes. There are no immature forms or toxic granulations. Her potassium is still 3.3 with a BUN and creatinine of 5 and 0.52. Calcium is 7.5 with a magnesium of 1.8. Her chest x-ray shows less globular heart, although it is done PA lateral whether than AP. Costophrenic angles are sharp. I see no infiltrates. She still has some cephalization of vessels. IMPRESSION: 1. Five days . 2. Small pericardial effusion., 3. Hypertension. 4. Peripheral edema. 5. History of diabetes. PLAN AND DISCUSSION: The hospitalist service along with the obstetric service and I have all discussed her. I do not think she has pericardial tamponade, although she has a small effusion. She may have pericarditis, and I have suggested that we start her on colchicine. There is a discussion of steroids, and I have no objections to steroids, although I think the colchicine will be the mainstay of her treatment over the next 30 days. She may have pre-eclampsia with all its dire consequences, and therefore Dr. Watters of obstetrics is going to treat her with nifedipine for her blood pressure and magnesium. I have opined to the hospitalist service that we can continue to diurese her. She is obviously very sensitive to Lasix, as she has put out 3000 mL from one dose last night. I will obtain another echocardiogram and EKG. Should note that yesterday's EKG did not show any acute changes and had a sinus rhythm. It is being read as poor R-wave progression, but there is plenty of voltage across the V leads. It certainly does not show pericarditis. I will continue to monitor her blood pressure via the arterial line. She is continuing to breast-feed, and with the input of Dr. Watters of obstetrics, the colchicine and nifedipine minimally cross into the breast milk and will not affect the .
[2021-01-06] MEDS: NIFEdipine 30 MG XL TAB PO SCH (12:32)
--- NOTE | 2021-01-06 13:23 | CR ---
CARDIOLOGY CONSULTATION DATE: 01/06/2021 INDICATION: Pericardial effusion/chest pain. HISTORY OF PRESENT ILLNESS: This 30-year-old mother of two, resident of [place], gave to her second child only six days ago. Customarily, she is of good health and takes no regular medications and customarily does not feel restricted caring for her family without problem. She reports having no particular difficulty with her pregnancies. However, the first was early. Her second was not complicated by hypertension or apparent proteinuria. She noticed only increasing lower leg swelling over the course of the past two weeks. Her confinement was uncomplicated. However, several days ago she noticed a retrosternal heaviness in the supine position that resolved upon sitting upright. This discomfort apparently was relatively short lived but recurred yesterday. In light of this and her increasing lower leg swelling, she presented to the emergency room at [facility] yesterday at 12:30 p.m. Initial vital signs in the emergency room showed a heart rate of only 83 beats per minute, blood pressure 160/83, respiratory rate 19, O2 saturation 99% on room air and she was afebrile. Her COVID-19 nasal swab was negative. Investigations showed a mild anemia, hemoglobin 9 with normal white blood cell count, platelet count. Her blood work showed a slightly increased total CPK with negative MB fracture and negative troponin I levels. Her ultrasensitive TSH was normal at 2.5. Serum albumin was soft at 2.4. ProBNP level was elevated at 783. Portable upright chest x-ray was reported as showing no acute disease with heart size that was not felt to be significantly enlarged. There was no pulmonary venous congestion. Lung melendrez were clear. EKG showed sinus rhythm/marked sinus arrhythmia with low limb voltages and poor precordial R wave progression. Blood work revealed a degree of hypokalemia with potassium 3.3. Other electrolytes were normal, BUN 4, creatinine 0.5, random glucose 75. In light of her chest discomfort and lower leg swelling and concern for possible pulmonary embolism, a chest CT angiogram was performed showing an obvious pericardial effusion, suspected cardiomegaly but normal greater vessels and no evidence of pulmonary edema or pulmonary embolism. Lower extremity venous ultrasound was performed and showed no evidence of deep venous thrombosis. An urgent echocardiogram was performed yesterday and read by myself showing sinus rhythm with normal left ventricular size, wall thickness and wall motion. Left atrium was upper limits of normal with normal Doppler assessment of LV diastolic function and estimated mean left atrial pressure. Right heart chamber sizes were not dilated and in fact there was some systolic inversion of the right atrial free wall along with a moderately large pericardial effusion. Her estimated pulmonary arterial pressure was normal but her inferior vena cava was slightly dilated at 2.2 cm with markedly reduced respiratory collapse in keeping with an elevated central venous pressure. Normal aortic dimensions and normal appearing valvular structures, no intracardiac mass. Her pericardial effusion measured 1.4 cm posteriorly, 0.6 cm anteriorly and 1.1 cm laterally. There was also a significant respiratory variation to LV and RV inflow tract signals in keeping with the degree of cardiac compression. A preliminary report of this was relayed directly to the ER physician and we suggested consultation with Dr. Nahum Mueller, thoracic surgery for possible pericardiocentesis should she have clinical cardiac tamponade. She was seen by Dr. Mueller and was found not to have clinical tamponade so urgent pericardiocentesis was not indicated. I spoke with the covering hospitalist and recommended the use of IV Solu-Medrol followed by p.o. prednisone along with colchicine 0.6 mg p.o. b.i.d. to hopefully rapidly reabsorb the pericardial fluid prior to developing a hemodynamic problem. Official cardiology consultation was requested in order to encourage the patient, a new mother, that it was safe to continue with these medications. She was given Lasix 40 mg IV yesterday and diuresed a total of 3 liters without hemodynamic compromise. Her blood pressure actually increased and she was started on a combination labetalol this morning. Currently the patient is comfortable, breast-feeding her infant. She reports having a vague throat dryness severe weeks ago but cannot recall any fever, chills or night sweats. She denies any myalgia or arthralgia, joint redness, swelling or rash. She has not had any recent GI complaints. Her has been vaccinated for COVID but she has not. No history of chest trauma. No known thyroid dysfunction or bleeding disorder. No history of renal insufficiency. CURRENT MEDICATIONS: Presently receiving magnesium sulfate IV infusion and has received additional IV Lasix. Procardia XL 30 mg daily. Heparin 5000 units subcu q.12h, Milk of Magnesia 30 mL p.o. daily for constipation, Protonix 40 mg daily, Nifedipine 20 mg p.o. q.6h. p.r.n. systolic blood pressure greater than 160 or diastolic pressure greater than 110. Xopenex 1.25 mg via nebulizer q.6h. p.r.n., Geritol 30 mg p.o. IV q.6h, Colace 100 mg p.o. b.i.d., Zofran 4 mg IV q.4h. p.r.n. nausea, Tylenol and Percocet p.r.n. pain, colchicine 0.6 mg p.o. b.i.d. and Solu-Medrol 125 mg IV x1 dose. ALLERGIES/ADVERSE REACTION: Squash, ? reaction. PHYSICAL EXAMINATION: CONSTITUTIONAL: Pleasant, overweight young lady lying comfortably with the head of the bed elevated 30 degrees. Obvious pallor with no cyanosis. VITAL SIGNS: Current heart rate 84 beats per minute and regular with irregularities, blood pressure 153/98 without evidence of pulsus paradoxus. Respiratory rate 18 per minute, 02 saturation 99%. Afebrile. Height 69 inches, weight 222 lb, BMI 32.8. EYES: Slightly pale conjunctiva but no icterus. No petechial conjunctival lesions. ENT/MOUTH: Normal oral moisture, no buccal lesions or ulcers. NECK: Trachea midline with neck veins significantly elevated approximately 14 cm. above the sternal angle. Thyroid did not appear enlarged. RESPIRATORY: Normal appearing chest configuration and chest expansion. Good air entry over both lung melendrez with no current inspiratory rales or expiratory rhonchi. CARDIOVASCULAR: Apical impulse was not visible and no palpable. Heart sounds appear to be normal including normal respiratory splitting of S2. No audible gallops. The patient had an obvious systolic ejection murmur, grade 2/6 maximally audible along the left lower sternal border radiating toward the right base but also to the apex. No obvious pericardial rub. No diastolic murmur. Normal carotid upstrokes and volume with no bruits. Upper extremity femoral and pedal pulses were palpable, pedal pulses palpable even through obvious lower leg swelling. Abdominal aorta was not palpable. No abdominal bruits. Marked bilateral lower extremity pitting edema involving her thighs as well as her sacrum and lower lumbar spine. No obvious varicose veins. GI: Soft and nontender abdomen with no apparent hepatosplenomegaly. Normal bowel sounds. Rectal examination not indicated. MUSCULOSKELETAL: Well healed right knee surgical incision but no other obvious joint deformities or inflammation. Normal appearing muscular strength and tone. SKIN: No obvious rashes, ecchymotic lesions. However, obvious pallor. No rashes. NEURO/PSYCH: Bright, alert and orientated, gave me lucid history. Eye, facial, and extremity moves were symmetrical and normal. Normal spine curvature. No abnormal movements. INVESTIGATIONS: Blood work today shows hemoglobin of 8.3 with slightly low MCHC but normal MCV. Normal white blood cell count and differential. Normal platelet count. Chemistry today shows ongoing hypokalemia of 3.3. Other electrolytes were normal. BUN 5, creatinine 0.5. Estimated glomerular filtration rate greater than 60. Fasting glucose 74. Magnesium level was normal at 1.8. Serum calcium was low at 7.5 but serum albumin yesterday was low at 2.4. Chest x-ray: Study performed early today was reviewed independently and shows a somewhat water bottle appearing heart with normal CT ratio of 14.8 and 32.6. Normal greater vessels and clear lung melendrez with no interstitial edema or pleural effusion. Normal bony structures. EKG: Tracing taken earlier today was also reviewed independently and showed sinus rhythm at 80 BPM. Persistently low limb voltages with currently normal precordial R wave progression. No acute repolarization abnormalities. No significant change from yesterday other than a precordial lead placement. IMPRESSION/PLAN: 1. Pericardial effusion: It is normal during the third trimester of for a small pericardial effusion (2 mm) to be found in some 40% of women. However, what is found in this circumstance is well beyond that. Her echocardiogram shows normal cardiac chamber sizes, wall thickness and wall motion with normal estimated mean left atrial pressure and pulmonary arterial pressure. Some right atrial free wall inversion intermittently and respiratory variation of LV and RV inflow tract signals along with a dilated inferior vena cava with virtually no respiratory collapse in keeping with elevated central venous pressure. All findings suggest a degree of cardiac compression. Remarkably she did not become hemodynamically compromised despite IV diuretic therapy. She continues to have markedly elevated central venous pressure and again no sign of pulmonary venous congestion or interstitial edema to suggest a cardiomyopathy. Our hope at this point is to proceed with anti-inflammatory therapy that might lead to reabsorption of pericardial fluid prior to her developing clinical cardiac tamponade. I recommended IV Solu-Medrol today with high dose prednisone p.o. for at least the next two weeks. She has also been started on colchicine 0.6 mg p.o. b.i.d. that we would continued at this dosage for six months and then reduce the dose to 0.6 mg daily for an additional six months to prevent recrudescences of her pericardial inflammation and fluid. Dr. Mueller continues to monitor her for safety's sake. 2. Chest pain (precordial): Her positional chest heaviness is not necessarily typical of pericarditis and may simply be a reflection of pericardial fluid accumulation. On examination, she has a systolic murmur that is believed to be physiologic and flow related; no pericardial rub. Her chest sensation has resolved spontaneously. 3. Abnormal EKG: Other than the reduced voltages, her tracing is remarkably benign, no indicators to suggest acute pericardial inflammation, cardiac enlargement or prior injury. 4. Heart murmur: As mentioned above, she has a systolic ejection murmur that is simply believed to be flow related. Her echocardiogram/Doppler study showed normal appearing valvular structures and function. There was no sign of intracardiac shunting. 5. PVCs: Her bedside desk monitor shows sinus rhythm with frequent unifocal PVCs that I suspect are reflection of her hypokalemia. Additional potassium chloride replacement has been ordered and I am optimistic this will prevent more complicated ventricular rhythm disturbance. I have discussed the above impressions and plans with the patient and her in detail who appeared to understand. She has been reassured that the steroids and colchicine will not affect her breast-feeding child. I will plan on following her with you. We would not recommend a followup echocardiogram prior to one week to assess pericardial fluid volume. Thank you, Rudy Gordon MD, [facility]
--- NOTE | 2021-01-06 13:27 | IPNPDOC ---
Text Note Date of Service The patient was seen on 01/06/21. NOTE S: Pt seen and evaluated at bedside this AM, w/ Ervin Edwards Oliva prese nt. She refused all medications advised on admission due to concerns of their effects on her baby, as she is currently . Significant counseling and discussion of plan and recommendations performed. Reports improved b/l LE edema. Denies chest pain, palpitations, SOB. According to her Ob, Dr. Watters, pt's course complicated by cervical cerclage at 14wks gestation for cervical insufficiency/shortening. Pt delivered 01/01/21 via elective induction of labor at 39wks gestation w/out complications. Intermittent hypertensive BP noted during hospital admission. Dr. Watters tells me pt was seen in office 01/05 w/ complaints of worsening chest pressure, b/l LE edema, and new onset orthopnea. BP in office was 132/92. He advised her to go to [facility] ED for evaluation. O: GEN: sitting up in bed, , NAD, alert and awake HEENT: NC/AT, EOMI, nares patent, moist mucous membranes, no JCD distension CARDIO: normal heart sounds, RRR, 2/6 murmur, rub, no G RESP: CTA b/l, no WRR, no accessory muscles used ABD: normal BS, soft, nontender, nondistended EXTREMITIES: significant edema (b/l feet, LE). normal ROM IMAGING: CXR (01/05) No acute pulmonary disease CTA Chest (01/05) There are no pulmonary emboli. Cardiomegaly and pericardial effusion as described. Punctate gallbladder calculus. Vascular u/s b/l LE (01/05) There is no deep vein thrombus in right or left lower extremities Echocardiogram (01/05) Normal sinus rhythm without interventricular conduction disturbance. M-mode and 2-dimensional echocardiography was performed with pulse, continuous wave and color flow and tissue Doppler studies. Normal left ventricular sizes, wall thickness and wall motion. Left atrial size upper limits of normal with currently normal Doppler assessment of LV diastolic function and estimated mean left atrial pressure. Normal right heart chamber sizes and motion with some inversion. Her IVC was slightly dilated with reduced respiratory collapse in keeping with an elevated central venous pressure. Normal aortic dimensions. Normal appearing and functioning volvulus structures. No apparent intracardiac mass. Fairly large pericardial effusion measuring 1.4 cm posteriorly, 0.6 cm anteriorly and 1.1 cm laterally. There was in addition to right atrial free wall inversion intermittently she had significant respiratory variation to Doppler flow signals in keeping with cardiac compression. A preliminary report of this study was relayed to Dr. Delgado. We suggested a consultation with Dr. Nahum Mueller, Thoracic Surgery, to consider pericardiocentesis. CXR (01/06) Essentially negative PA and lateral chest Cardiac size appears normal on the PA and lateral views today, however, cardiac size was enlarged on the comparison CT and there was a pericardial effusion on the comparison CT. Echocardiogram (01/06) Report pending A/P: 30F 5days w/ worsening LE edema and chest pressure found to have pericardial effusion on echo (01/05) and worsening uncontrolled hypertension (BP 188/92) concerning for preeclampsia vs myocarditis vs peripartum cardiomyopathy. #Pericardial effusion 2/2 preeclampsia vs carditis vs peripartum cardiomyopathy- improved clinical sx BNP 783, Cardiac markers wnl On Lasix Start Nifedipine for BP control Start Prednisone, Colchicine for antiinflammatory effects Echo 01/05 concern for cardiac tamponade, report noted above D/c IVF D/c Labetalol Continue BP monitoring via arterial line, BP cuff Cardiology (Dr. Oviedo) on consult- he will be seeing pt this afternoon #Possible preeclampsia Pt seen and evaluated by her Ob, Dr. Watters, this AM. Counseled pt on safety of cochicine and nifedipine while Start Mg2+ 4g starting dose w/ 2g maintenance Ob (Dr. Harrison) on consult #Possible cardiomyopathy vs carditis Coxsackie virus, COVID pending CRP, RF, LEORA pending UA w/ urine cx pending On Prednisone, Cochicine Cardiology (Dr. Oviedo) on consult #Possible cardiac tamponade- unlikely given clinical presentation at this time Advise against BB for BP management at this time as it can mask progression to cardiac tamponade D/c Labetalol Start Nifedipine Repeat CXR noted above Continue BP monitoring via arterial line, BP cuff Pericardiocentesis not recommended at this time Cardiothoracic surgery (Dr. Mueller) on consult #Hypokalemia K+ 3.3 KCl supplement Monitor labs #DVT prophylaxis TEDS and sequentials DISPO: home, pending clinical improvement Activity as tolerated Regular diet GME ATTESTATION My faculty preceptor for this patient encounter was physically present during the encounter and was fully available. All aspects of the patient interview, examination, medical decision making process, and medical care plan development were reviewed and approved by the faculty preceptor. The faculty preceptor is aware and concurs with the plan as stated in the body of this note and will attest to such by his/her cosignature. ATTENDING NOTE I personally examined Ms. Klein with the resident team, we discussed her findings, labs and imaging and discussed her management with OB and cardiothoracic surgery present. I agree with the above summary and management as excellently detailed by the resident physician. Briefly, Ms. Klein recently delivered a full term baby 6d prior to admission and had been having some mild LE edema within the last 2 weeks and mild HTN that had been expected to improve with delivery but instead got worse and she developed some chest discomfort with laying supine and her OB appropriately sent her to the ED for evaluation. In the ED she was noted to have significant peripheral edema, was hypertensive and a stat TTE revealed an at least mild pericardial effusion with an elevated CVP with non collapsing IVC with respirations and Dr. Oviedo alerted the ED physician and recommended cardiothoracic surgery involvement for potential cardiac tamponade for potential pericardiocentesis but on evaluation by thoracic surgery her clinic picture did not fit tamponade and so he medically managed her with close monitoring in the ICU with trial of loop diuresis. This morning, she has responded to the IV diuretic well with persisting but improving peripheral edema and otherwise remains hemodynamically stable. Unfortunately there had been some concern from the patient about the safe of the medications that were being recommended as she is currently . Thankfully, this AM we were able to conference with her, her OB and CT surgery and reassured her that colchicine, steroids and nifedipine have been proven to be safe to give to mothers with very low acceptable transference into breast milk. She is now agreeable to being started on colchine, prednisone and instead of labetalol, while now be started on nifedipine for HTN. Cardiology will officially be seeing her as well today. The etiology of her pericardial effusion, elevated CVP and resulting peripheral edema is still under investigation including potential pericarditis vs. cardiomyopathy though on initial TTE EF appears wnl vs. eclampsia though isolated cardiac complications are are. Appreciate cardiothoracic and OB timely and tremendous medical support. Josh CAMAP, I+O Lashell CAMPAe, I+O Laboratory Tests 01/05/21 12:58 01/06/21 05:10 Vital Signs Date Time Temp Pulse Resp B/P (MAP) Pulse Ox O2 Delivery O2 Flow Rate FiO2 01/06/21 06:00 84 153/98 99 188/92 01/06/21 04:00 98.0 20 Room Air I&O- Last 24 Hours up to 6 AM 01/06/21 06:00 Intake Total 0 ml Output Total 3550 ml Balance -3550 ml Mona Posey DO Jan 06, 2021 13:27 IRA BAKER MD Jan 07, 2021 10:00
--- NOTE | 2021-01-06 14:01 | CR ---
CONSULTATION DATE: 01/05/2021 REQUESTING PHYSICIAN: Stanford Delgado MD REASON FOR CONSULTATION: The patient is seen at the request of the emergency room Dr. Delgado for leg swelling and a small pericardial effusion. HISTORY OF PRESENT ILLNESS: The patient is a 30-year-old white female who is now four days status post an induced vaginal delivery of a baby boy. She states that during her , particularly in the last six weeks, that she noticed swelling of her extremities. She states that prior to delivery she was normotensive and she did have high blood pressure. In and around delivery time, her blood pressure was elevated and remained so. Her leg swelling has gotten worse over the past four days, says is now up to her thighs. She also notes that while she can sleep in a flat bed that she experiences chest discomfort and pressure when lying down and is relieved with sitting up. This symptom is rather inconsistent however. While she does not get short of breath lying down, she will awake with this chest discomfort, complaining of shortness of breath. She sits up and it is relieved immediately. She has noted in the emergency room and on online physical examination to be tachycardia with a rate of 115. She however is rather upset and rather emotional secondary to concern and worry over her condition. Her is by the bedside with the young child. She is apparently breast feeding the child. She has no cough, no sputum production, no fevers, chills or sweats. There is no dysphagia. Echocardiography today shows a very small pericardial effusion, particularly posteriorly of 1 cm and anteriorly 6 mm. This is confirmed on the CT scan. See comments below. Anvil Worker has read her ejection fraction as near 65%. My interpretation is slightly different, which I will discuss below. PAST MEDICAL ILLNESS: Prior diabetes, which she was on metformin, but since resolved and she is no longer being treated for diabetes. PAST SURGERIES: Knee surgery in the past. MEDICATIONS AT HOME: Docusate sodium as needed for constipation. She was on aspirin and vitamins along with progesterone. This has since be discontinued. TRAVEL HISTORY: She has been to the [facility] and [facility]. No foreign travel. OCCUPATIONAL HISTORY: Used to work at the [employer]. Her tuberculosis tests have been negative. OTHER EXPOSURES: She has three dogs. No cats or birds. HABITS: Does not smoke or use alcohol. REVIEW OF SYSTEMS: Constitutional: See history of present illness. Without fevers, chills, sweats or night sweats. Eyes without diplopia, without amaurosis fugax, without prior jaundice. Nose with occasional epistaxis during her . Mouth: Has her own teeth. Respiratory: See history of present illness. Cardiac: See history and physical. Denies palpitations or tachycardia. No intermittent claudication. No prior history of myocardial infarctions. Gastrointestinal (GI): Without nausea, vomiting, diarrhea or constipation. No melena or hematochezia. No hematemesis or abdominal pain. Genitourinary (): Without dysuria or hematuria prior to her delivery. No history of renal stones. Endocrine: See past medical illnesses. Previously treated for diabetes, now resolved. Without thyroid disease. Neurologic: Without paresthesias, paralysis or paresthesias. Psychiatric: Without pathological anxieties, depression or psychosis. PHYSICAL EXAMINATION: Well-developed, semi-distraught white female in moderate emotional distress, not in physiologic distress. Vital signs: Temperature is 98.8, heart rate varies between 115 and 76, now 76 in normal sinus rhythm with premature ventricular contractions (PVCs). Respiratory rate of 18 without use of accessory muscles, who is 99% saturated on room air. His blood pressure is 150/90 to 185/96 by cuff and 180 systolic by arterial line. Head: Normocephalic. Eyes: Pupils equal and reactive. Extraocular motion are intact. Sclerae nonicteric. Nose without deformity. Mouth: Shows mucous membranes to pink and moist. Lips and commissures: No lesions and thrush. Teeth are in good repair. Neck is supple. There is no jugular venous distention (JVD). No subcutaneous emphysema. Trachea is midline. There is no carotid bruits. Just 2+ carotid upstrokes. No thyromegaly or lymphadenopathy. Lungs show equal breath sounds on either side with normal vesicular sounds with full compression up to the diaphragm. Cardiac examination: Shows 2/6 systolic ejection murmur at the left sternal border, but quite diminished at the left sternal border. I suspect it is referrable to her pulmonary valve. Does not radiate to the carotids. I cannot feel the PMI. S1 and S2 are normal. Abdomen: Soft, nontender. Bowel sounds are positive. There is no hepatomegaly. No costovertebral angle (CVA) tenderness. Extremities: Show 4+ pretibial edema. No calf tenderness. No differential swelling in the upper extremities. Her upper extremities show also some edema. Neuro: CN II-XII intact with gross motor intact. Gait is not tested. Psychiatric: Alert, awake and oriented times 3 with appropriate mood and affect and conversational. Skin is warm, dry and perfuse without cyanosis or mottling including nailbeds and knees. INVESTIGATIONS: Her white count is 7.1 with a hemoglobin and hematocrit of 9.0 and 29.1 respectively. Platelet count is 215 and differential shows 70% neutrophils and 90% lymphocytes and 7% monocytes and no immature forms or toxic granulations Her electrolytes show potassium of 3.3 with the remainder of her electrolytes normal. Glucose is 75 with a BUN and creatinine of 4 and 0.5 and ionized calcium of 4.4. Her AST and ALT are normal. Troponin which is less than 0.02 and albumin of 2.4. TSH is 2.5, within normal limits. Venous blood gases at 4 o'clock showed a pH of 7.37, pCO2 of 41, pO2 of 31 with a base excess of -.1.4. Arterial blood gases are pending. Her chest x-ray done portably shows a globular heart, particularly on the left side. Costophrenic angles are sharp. She has cephalization of vessels. Lungs are full expanded at the chest wall. I see no infiltrates. This is done portably. Her CT angiogram did not show a pulmonary embolism. She has a very small pericardial effusion, which measures 8 mm laterally, 1.2 mm posteriorly and is virtually undetectable anteriorly, maybe 5 mm. Liver has a normal configuration and no lesions. However, her hepatic veins are quite prominent. Right adrenal normal configuration as is the right adrenal. I do not see mediastinal lymphadenopathy. The echocardiogram done today again confirms a very small pericardial effusion. She does have a dilated IVC without much respiratory variations. IVC is 2.2 cm. I do not appreciate compression of the atrium. The short axis view shows an ejection fraction of 60 to 65%, with which I agree with the monument letterer. However, the long axis shows a decreased ejection fraction of maybe 40 to 50%. Sagittal view again confirms the minimal pericardial effusion posteriorly and even smaller anteriorly. A coronal view shows the pericardial effusion to be concentric, again fairly small. Duplex Doppler of her bilateral lower extremities does not show any deep vein thrombosis in either the right or left. IMPRESSION: 1. 4 days , induced vaginal delivery of male child. 2. Bilateral edema of both legs. 3. Small pericardial effusion. 4. Prior diabetes. 5. Hypertension. 6. Multiple PVCs. PLAN/DISCUSSION: I am not convinced that she has a pericardial tamponade, but she does have a small pericardial effusion. It is certainly well known that because of the consistency of the pericardium being a leather bottle that there is not much room for expansion and that even a small amount of fluid can cause compression and tamponade. I see no evidence of that at this point in time. Her tachycardia, which comes and goes with her emotional state is not convincing of tamponade either. She is not taking any medications to mask her tachycardia. This may still represent a cardiomyopathy, although there is legitimate room for difference of opinion. At this point in time, I am not exactly sure what is the origin of her edema, although it could be eclampsia, which is to my understanding rather unusual as eclampsia is usually relieved with delivery. She does have multiple PVCs. She is hypokalemic and I will check her magnesium. Will replace her magnesium. I have her IV going at 75 ml an hour and I will decrease that to 25 ml an hour and I will give her Lasix as I do not think that she is in true tamponade. I have spoken with Dr. Watters of the obstetrical service and he is going to come see her tomorrow morning. He has a very good rapport with the patient. I will obtain an echocardiogram on her tomorrow. She now has an arterial line in and we will monitor that very carefully, and should she trend towards to hypotension, that will force my hand to go to the operating room. This is way too small to drain percutaneously.
[2021-01-07] VITALS (11 sets, daily range): BP systolic 112–186; BP diastolic 68–98
[2021-01-07] MEDS: LEVALBUTEROL 1.25 MG/0.5 ML CONCENTRATE NEB NEB SCH ×4 (00:10→20:00)
[2021-01-07] MEDS: KETOROLAC 30 MG/ML 1ML VIAL IV SCH ×3 (06:10→17:50)
[2021-01-07 08:03] LABS: HEMATOCRIT 31.7 % (36.0-47.0); MEAN CORPUSCULAR HEMOGLOBIN 29.1 pg (27.0-33.0); MEAN CORPUSCULAR HGB CONC 31.5 g/dl (32.0-36.5); MEAN CORPUSCULAR VOLUME 92.2 fl (80.0-96.0); PLATELET COUNT, AUTOMATED 287 10^3/uL (150-450); RED BLOOD COUNT 3.44 10^6/uL (4.00-5.40); WHITE BLOOD COUNT 10.8 10^3/uL (4.0-10.0)
[2021-01-07] MEDS: MOM 30ML SUSPENSION UDC PO SCH (08:42)
[2021-01-07] MEDS: HEPARIN SOD (PORCINE) 5000UNITS/ML 1ML VIAL/SYRINGE SC SCH ×2 (08:42→21:00)
[2021-01-07] MEDS: PANTOPRAZOLE 40MG TAB (PROTONIX) PO SCH (08:42)
[2021-01-07 08:44] LABS: ALBUMIN 2.6 GM/DL (3.2-5.2); ALT/SGPT 17 U/L (12-78); BILIRUBIN,TOTAL 0.4 MG/DL (0.2-1.0); BLOOD UREA NITROGEN 7 MG/DL (7-18); CALCIUM LEVEL 8.2 MG/DL (8.5-10.1); CARBON DIOXIDE LEVEL 27 MEQ/L (21-32); CHLORIDE LEVEL 113 MEQ/L (98-107); CREATININE FOR GFR 0.53 MG/DL (0.55-1.30); GLOMERULAR FILTRATION RATE > 60.0 (>60); GLUCOSE, FASTING 66 MG/DL (70-100); POTASSIUM SERUM 4.7 MEQ/L (3.5-5.1); SODIUM LEVEL 145 MEQ/L (136-145); TOTAL PROTEIN 6.1 GM/DL (6.4-8.2)
--- NOTE | 2021-01-07 09:04 | REP ---
INDICATION: pericardial effusion. COMPARISON: PA and lateral chest dated 01/06/2021. TECHNIQUE: Upright PA and lateral chest. FINDINGS: The lung melendrez are clear. Cardiac size is normal. The ashok, mediastinum and skeletal structures are unremarkable. IMPRESSION: Essentially negative PA and lateral chest There is no interval change. <Electronically signed by Dontae Pringle > 01/07/21 0900
[2021-01-07] MEDS: COLCHICINE 0.6 MG TABLET PO SCH ×2 (10:30→21:39)
[2021-01-07] MEDS: DOCUSATE SODIUM 100MG CAPSULE PO SCH ×2 (10:30→21:40)
[2021-01-07] MEDS: predniSONE 20 MG TAB PO SCH (10:30)
[2021-01-07] MEDS: FUROSEMIDE 40MG/4ML VIAL (J1940) IV SCH (10:31)
[2021-01-07] MEDS: NIFEdipine 30 MG XL TAB PO SCH (12:39)
--- NOTE | 2021-01-07 12:59 | IPNPDOC ---
Text Note Date of Service The patient was seen on 01/07/21. NOTE Subjective: -Doing well this morning, no complaints of SOB, chest pain, palpitations, slept well -had robust response to lasix 40 IV and reports improved b/l LE edema. Objective: Vitals: see below GEN: sitting up in bed, NAD, alert and awake HEENT: NC/AT, EOMI, moist mucous membranes CARDIO: RRR, continues to have a 2/6 systolic murmur at RUSB, no noted rubs or gallops RESP: CTAB, no W/R/R, no accessory muscles used ABD: normal BS, soft, nontender, nondistended EXTREMITIES:Continues to have 2+ b/l LE, but much improving at this time. WWP otherwise LABS: Reviewed IMAGING: CXR (01/05) No acute pulmonary disease CTA Chest (01/05) There are no pulmonary emboli. Cardiomegaly and pericardial effusion as described. Punctate gallbladder calculus. Vascular u/s b/l LE (01/05) There is no deep vein thrombus in right or left lower extremities Echocardiogram (01/05) Normal sinus rhythm without interventricular conduction disturbance. M-mode and 2-dimensional echocardiography was performed with pulse, continuous wave and color flow and tissue Doppler studies. Normal left ventricular sizes, wall thickness and wall motion. Left atrial size upper limits of normal with currently normal Doppler assessment of LV diastolic function and estimated mean left atrial pressure. Normal right heart chamber sizes and motion with some inversion. Her IVC was slightly dilated with reduced respiratory collapse in keeping with an elevated central venous pressure. Normal aortic dimensions. Normal appearing and functioning volvulus structures. No apparent intracardiac mass. Fairly large pericardial effusion measuring 1.4 cm posteriorly, 0.6 cm anteriorly and 1.1 cm laterally. There was in addition to right atrial free wall inversion intermittently she had significant respiratory variation to Doppler flow signals in keeping with cardiac compression. A preliminary report of this study was relayed to Dr. Delgado. We suggested a consultation with Dr. Nahum Mueller, Thoracic Surgery, to consider pericardiocentesis. CXR (01/06) Essentially negative PA and lateral chest Cardiac size appears normal on the PA and lateral views today, however, cardiac size was enlarged on the comparison CT and there was a pericardial effusion on the comparison CT. Echocardiogram (01/06) Report pending A/P: 30yo W 6 days who presented with worsening LE edema and chest pressure found to have elevated CVP and a pericardial effusion on echo (01/05) and worsening uncontrolled hypertension (BP 188/92) concerning for preeclampsia vs -carditis vs peripartum cardiomyopathy. #Pericardial effusion 2/2 preeclampsia vs carditis vs unlikely peripartum cardiomyopathy -EKG showed NSR -Troponins were wnl -01/05 Echo showed dilated IVC, elevated CVP and a pericardial effusion and cardiology had c/f potential tamponade and recommended CT surgery consultation. -Was assessed by CT surgery and clinical was not in tamponade and so closely monitored and contributed to medical management with lasix and recommending lnifedipine for HTN instead of a beta merlin -s/p arterial line (now discontinuing) -Pericardiocentesis not recommended at this time -lasix 40mg IV daily for now #Possible preeclampsia -Patient OB Dr. Watters has been active in her inpatient care, appreciate recommendations -He counseled pt on safety of colchicine and nifedipine while , and patient's BP and volume status is improving with treatment -s/p magnesium sulfate to raise seizure threshold -lasix 40mg IV daily for now for peripheral edema #Possible cardiomyopathy vs carditis -Unlikely to be cardiomyopathy given normal EF -Coxsackie virus and COVID serologies pending -CRP, RF, LEORA pending -On Prednisone 60mg daily and colchicine 0.6mg BID -Cardiology (Dr. Oviedo) on consult #HTN: No history of, possible 2/2 pre-eclampsia -for now will treat with nifedipine 30 QD, also on lasix 40 IV QD #Hypokalemia: repleted -Monitor daily labs while on diuretic #DVT prophylaxis TEDS and sequentials DISPO: home, pending clinical improvement. Medsurg for now, plan for transfer to peds for rooming with baby, will otherwise follow as med/surg while there. Activity as tolerated Regular diet VS,Fishbone, I+O VS, Fishbone, I+O Laboratory Tests 01/07/21 07:53 Vital Signs Date Time Temp Pulse Resp B/P (MAP) Pulse Ox O2 Delivery O2 Flow Rate FiO2 01/07/21 12:39 134/84 01/07/21 08:00 98.4 89 16 99 Room Air l I&O- Last 24 Hours up to 6 AM 01/07/21 06:00 Intake Total 2505 ml Output Total 4750 ml Balance -2245 ml IRA BAKER MD Jan 07, 2021 12:59
--- NOTE | 2021-01-07 13:44 | ECHO ---
ECHOCARDIOGRAM DATE OF PROCEDURE: 01/06/2021 Age: 30 Gender: Female Height: 69 inches Weight: 222 pounds Body surface area: 2.16 m2 PATIENT LOCATION: Inpatient intensive care unit (ICU) Room 3206. REFERRING PHYSICIAN: Nahum Mueller M.D. INDICATION: Follow up pericardial effusion. COMMENTS: Normal sinus rhythm without intraventricular conduction disturbance. M-mode and 2-dimensional echocardiography was performed with pulse, continuous wave, color flow Doppler and tissue Doppler studies. The findings are unchanged from the previous evening, showing a moderate sized pericardial effusion with mildly dilated inferior vena cava and markedly reduced respiratory collapse in keeping with an elevated central venous pressure. Right heart chamber sizes and motion were normal with normal estimated pulmonary arterial pressure. Normal left heart chamber sizes, wall thickness and wall motion with normal estimated mean left atrial pressure. Clinical correlation is required to determine whether the patient has cardiac tamponade. However, having examined the patient personally, she has obvious evidence of elevated neck veins and marked systemic edema without pulses paradox and normal to elevated systolic pressure. The patient is currently receiving steroids and colchicine therapies. We would recommend a followup study in one week.
[2021-01-08] MEDS: KETOROLAC 30 MG/ML 1ML VIAL IV SCH ×3 (00:19→13:12)
[2021-01-08 00:34] VITALS: BP 140/81
[2021-01-08] MEDS: LEVALBUTEROL 1.25 MG/0.5 ML CONCENTRATE NEB NEB SCH (01:34)
[2021-01-08] MEDS: FUROSEMIDE 40MG/4ML VIAL (J1940) IV SCH (08:11)
[2021-01-08 08:30] VITALS: BP 152/89
[2021-01-08] MEDS: MOM 30ML SUSPENSION UDC PO SCH (09:00)
[2021-01-08] MEDS: HEPARIN SOD (PORCINE) 5000UNITS/ML 1ML VIAL/SYRINGE SC SCH (09:00)
--- NOTE | 2021-01-08 09:04 | IPN ---
PROGRESS NOTE DATE: 01/07/2021 SUBJECTIVE: Ms. Klein has had a remarkable uneventful 24 hours. She has put out over 7000 ml in urine and she is now normotensive. She is feeling well and her edema is continuing to decrease. There are no signs of pericardial tamponade. Her vital signs showed a T-max of 98.8 with heart rate that ranges from 81 to 92 and is sinus rhythm, respiratory rate of 15 to16 without the use of accessory muscles, who is 97 to 99% saturating on room air and her blood pressure is ranging between 186/98 to 112/75. Her intake and output for the past 24 hours was recorded as 2445 in and 7550 out for a negativity of 5000 ml. She weighs 99.8 kilograms compared to 100.9 kilograms yesterday. OBJECTIVE: On physical examination, her lungs showed normal vesicular sounds without wheezes, rhonchi or rales. Percussion is full at diaphragm. Cardiac examination shows the same now 1 to 2 systolic murmur at the right upper sternal border, most likely flow phenomenon through the pulmonary valve. S1, S2 are normal. Can not feel her PMI. Abdomen is soft and nontender. Bowel sounds positive. No hepatomegaly, costovertebral angle (CVA) tenderness. Extremities show now 3+ pretibial edema rather than 4+ pretibial edema. I cannot see her axis of her ankles. There is no calf tenderness and there is no calf tightness. There is no differential swelling of the upper extremities and the upper extremities looks less swollen. Skin is warm, dry and perfuse without cyanosis or mottling including nailbeds and knees. Neck is supple. There is no jugular venous distention. No subcutaneous emphysema. Trachea is midline. Mouth shows mucous membranes to be pink and moist. Lips and commissures no lesions or thrush. Eyes show pupils equal and reactive to light. Extraocular motions intact Sclerae nonicteric. Nose without deformity. Neuro: CN II-XII intact with gross motor intact. Gait is not tested. Psychiatric: Alert, awake and oriented times 3 with appropriate mood and affect and conversational. LABORATORY DATA: Her white today is 10.8 with hemoglobin and hematocrit of 10.0 and 31.7 secondary to hemoconcentration from her diuresis. Platelet count is 287 and stable. There is no differential. Her electrolytes now show potassium of 4.7 up from 3.3 yesterday. The remainder of her electrolytes are normal with a BUN and creatinine of 7 and 0.53 respectively essentially unchanged from yesterday. Glucose 66 with a calcium of 8.2, corresponding albumin of 2.6. Her chest x-ray shows her lungs fully expanded to the chest wall with sharp costophrenic angles. She no longer has cephalization of vessels. Heart size is unchanged. She has a normal CT ratio, there is globular aspect of the left heart border. Bowel gas pattern is unremarkable. IMPRESSION: 1. 6 days induced vaginal delivery of male child. 2. Bilateral edema of both legs. 3. Small pericardial effusion. 4. Prior history diabetes. 5. Hypertension, resolving. 6. Multiple premature ventricular contractions (PVCs) resolved. 7. Preeclampsia. PLAN/DISCUSSION: She is definitely not in pericardial tamponade. I am suspecting that all of symptomology and clinical presentation is secondary to preeclampsia, rather than tamponade. I think she does have increased right heart pressure secondary to her volume overload from her preeclampsia. That is being addressed with diuresis. I would suspect that the pericardial effusion will resolved itself in the next two weeks as more fluid comes off. She is being treated by Dr. Watters of obstetrics with magnesium. At my request, they have held beta blockers and she is on nifedipine. The reason for avoiding beta blockers was to make sure that an underlying tachycardia secondary to tamponade would not be masked. At this point in time, I have no strong feelings about how the hypertension is now treated as I am convinced that she is not in tamponade. By definition in order to have a pericardial effusion you must have increased right heart pressures with decreased range through the ___ veins. I have no objection to her being moved to the mother and child unit on maternity. I will probably see her one or two more times and then sign off the case as there are no surgical implications.
[2021-01-08] MEDS: predniSONE 20 MG TAB PO SCH (09:33)
[2021-01-08] MEDS: PANTOPRAZOLE 40MG TAB (PROTONIX) PO SCH (09:33)
[2021-01-08 09:34] VITALS: BP 132/76
[2021-01-08] MEDS: COLCHICINE 0.6 MG TABLET PO SCH (09:34)
[2021-01-08] MEDS: NIFEdipine 30 MG XL TAB PO SCH (09:34)
[2021-01-08] MEDS: DOCUSATE SODIUM 100MG CAPSULE PO SCH (09:34)
[2021-01-08] MEDS ORDERED: PANT40TA29 PO (09:43)
[2021-01-08] MEDS ORDERED: COLC0.6T47 PO (09:43)
[2021-01-08] MEDS ORDERED: NIFE1TAB52 PO (09:43)
[2021-01-08] MEDS ORDERED: FURO40TA2 PO (09:43)
[2021-01-08] MEDS ORDERED: PRED20TA PO (09:43)
--- NOTE | 2021-01-08 10:14 | DS.PDOC ---
Discharge Summary General Date of Admission Jan 05, 2021 at 21:20 Date of Discharge 01/08/2021 Attending Physician: IRA BAKER MD Discharge Summary PROCEDURES PERFORMED DURING STAY: None ADMITTING DIAGNOSES: Dyspnea Pericardial effusion DISCHARGE DIAGNOSES: Pericarditis Pericardial effusion Volume overload presumed 2/2 preeclampsia Hypokalemia PCOS GERD COMPLICATIONS/CHIEF COMPLAINT: Pericardial Effusion. HISTORY OF PRESENT ILLNESS: Very pleasant 30-year-old female, 5 days , delivered at 39 weeks, who presented to the ER with worsening lower extremity edema and chest discomfort. Patient developed edema several weeks prior to delivery that has been progressively getting worse despite delivery with mild hypertension that was noted by OB as well. She had no prior history of preeclampsia. She discussed her edema with her DELIVERY ROOM SUPERVISOR, Dr. Watters who recommended the patient seek help in the emergency room. HOSPITAL COURSE She was found to be hypertensive to 160/83. Lab work was notable for proBNP of 352, trop < 0.02. CTA showed a pericardial effusion and no PE. Patient had a stat echo performed in the ER, with concern for pericardial effusion as well as plump IVC with c/f cardiac tamponade and Dr. Oviedo recommended CT surgery consultation. Dr. Mueller was consulted from the ER and on his evaluation, she was not clinically in cardiac tamponage and he recommended medical management, placed an arterial line for BP monitoring, ordered 40 mg of IV Lasix, and scheduled repeat echo in the morning. The patient denied any shortness of breath, chest pain, palpitations, scaly fevers or chills, nausea, vomiting or diarrhea. Her only complaint was lower extremity edema. Cardiology and OB were consulted as well and OB promptly evaluated the patient and gave recommendations on safety of the proposed medications while cardiology initially declined to see the patient but on insistence and especially as it became clear that she was not in clinical tamponade requiring surgical intervention, he finally agreed to be an official planning consultant and saw the patient on day 2. He recommended colchicine for and steroids as the differential diagnosis included inflammation likely pericarditis vs. cardiomyopathy that was unlikely given her EF was actually normal on TTE vs. pre-eclampsia for which we managed her BP with nifedipine and gave lasix for the volume overload. She also had some ectopy noted with PVCs and was hypokalemic and repleted and also received some empiric magnesium sulfate for potential preeclampsia. She responded well lasix and nifedipine and is now being discharged on nefedipine 30mg QD that will be managed by her outpatient doctors to determine continuation/duration, lasix 40mg QD that will also be managed in the outpatient setting as her volume status impr oves and per cardiology will be on colchicine 0.6mg BID for a total 6m and thereafter 0.6mg QD for another 6m for the pericarditis, and will also be on prednisone 60mg for 2w, after which she may receive a taper in the outpatient setting. DISCHARGE MEDICATIONS: Please see below. ALLERGIES: Please see below. PHYSICAL EXAMINATION ON DISCHARGE: VITAL SIGNS: Please see below. Vitals: see below GEN: sitting up in bed, NAD, alert and awake HEENT: NC/AT, EOMI, moist mucous membranes CARDIO: RRR, continues to have a 2/6 systolic murmur at RUSB, no noted rubs or gallops RESP: CTAB, no W/R/R, no accessory muscles used ABD: normal BS, soft, nontender, nondistended EXTREMITIES:Continues to have 2+ b/l LE, improving. WWP otherwise LABORATORY DATA: Please see below. IMAGING: CXR (01/05) No acute pulmonary disease CTA Chest (01/05) There are no pulmonary emboli. Cardiomegaly and pericardial effusion as described. Punctate gallbladder calculus. Vascular u/s b/l LE (01/05) There is no deep vein thrombus in right or left lower extremities Echocardiogram (01/05) Normal sinus rhythm without interventricular conduction disturbance. M-mode and 2-dimensional echocardiography was performed with pulse, continuous wave and color flow and tissue Doppler studies. Normal left ventricular sizes, wall thickness and wall motion. Left atrial size upper limits of normal with currently normal Doppler assessment of LV diastolic function and estimated mean left atrial pressure. Normal right heart chamber sizes and motion with some inversion. Her IVC was slightly dilated with reduced respiratory collapse in keeping with an elevated central venous pressure. Normal aortic dimensions. Normal appearing and functioning volvulus structures. No apparent intracardiac mass. Fairly large pericardial effusion measuring 1.4 cm posteriorly, 0.6 cm anteriorly and 1.1 cm laterally. There was in addition to right atrial free wall inversion intermittently she had significant respiratory variation to Doppler flow signals in keeping with cardiac compression. A preliminary report of this study was relayed to Dr. Delgado. We suggested a consultation with Dr. Nahum Ervin, Thoracic Surgery, to consider pericardiocentesis. CXR (01/06) Essentially negative PA and lateral chest Cardiac size appears normal on the PA and lateral views today, however, cardiac size was enlarged on the comparison CT and there was a pericardial effusion on the comparison CT. Echocardiogram (01/06) Normal sinus rhythm without intraventricular conduction disturbance. M-mode and 2-dimensional echocardiography was performed with pulse, continuous wave, color flow Doppler and tissue Doppler studies. The findings are unchanged from the previous evening, showing a moderate sized pericardial effusion with mildly dilated inferior vena cava and markedly reduced respiratory collapse in keeping with an elevated central venous pressure. Right heart chamber sizes and motion were normal with normal estimated pulmonary arterial pressure. Normal left heart chamber sizes, wall thickness and wall motion with normal estimated mean left atrial pressure. Clinical correlation is required to determine whether the patient has cardiac tamponade. However, having examined the patient personally, she has obvious evidence of elevated neck veins and marked systemic edema without pulses paradox and normal to elevated systolic pressure. The patient is currently receiving steroids and colchicine therapies. We would recommend a followup study in one week. PROGNOSIS: Good ACTIVITY: As tolerated DIET: 2g sodium DISCHARGE PLAN: Home with lasix 40mg daily, nifedipine 30mg daily, colchicine 0.6mg twice daily, prednisone 60mg daily, with close OB, cardiology and PCP follow up DISPOSITION: Home DISCHARGE INSTRUCTIONS: Home with lasix 40mg daily, nifedipine 30mg daily, colchicine 0.6mg twice daily, prednisone 60mg daily, with close OB, cardiology and PCP follow up ITEMS TO FOLLOWUP ON ON OUTPATIENT: Pericarditis HTN Presumed preeclampsia LE edema DISCHARGE CONDITION: Stable TIME SPENT ON DISCHARGE: 56 minutes. Vital Signs/I&Os Vital Signs Date Time Temp Pulse Resp B/P (MAP) Pulse Ox O2 Delivery O2 Flow Rate FiO2 01/08/21 09:34 132/76 01/08/21 00:34 97.6 96 16 99 Room Air I&O- Last 24 Hours up to 6 AM 01/08/21 06:00 Intake Total 1560 ml Output Total 2850 ml Balance -1290 ml Microbiology Microbiology 01/06/21 Urine Culture - Final, Complete 01/05/21 Respiratory Virus Panel (PCR) ([facility]) - Final, Complete Discharge Medications Scheduled Colchicine (Colchicine) 0.6 Mg Tablet, 0.6 MG PO BID Furosemide (Furosemide) 40 Mg Tablet, 1 TAB PO DAILY Nifedipine (Nifedipine ER) 30 Mg Tab.er.24, 30 MG PO DAILY Pantoprazole Sodium (Pantoprazole Sodium) 40 Mg Tablet.dr, 40 MG PO DAILY Prednisone (Prednisone) 20 Mg Tablet, 60 MG PO DAILY Scheduled PRN Docusate Sodium (Dok) 100 Mg Tablet, 100 MG PO DAILY PRN for CONSTIPATION, (Reported) Allergies Coded Allergies: Squash (Verified Allergy, Severe, throat closed, face red, 07/05/20) IRA BAKER MD Jan 08, 2021 10:14
[2021-01-10 21:09] LABS: ANTINUCLEAR ANTIBODIES DIRECT Negative (Negative); COXSACKIE TYPE B1 Negative (Neg:<1:8); COXSACKIE TYPE B2 Negative (Neg:<1:8); COXSACKIE TYPE B3 Negative (Neg:<1:8); COXSACKIE TYPE B4 Negative (Neg:<1:8); COXSACKIE TYPE B6 Negative (Neg:<1:8)
== END 2021-01-08 13:26 | disposition home or self-care (01) | DRG 776 ==
LOC: M ED 12:30 → M 4MAIN 20:56 → UNDOADMIN 20:56 → M ICU 21:20 → M ED 21:25 → M PED 01-07 14:36
PROVIDERS: ADMIT Thoracic Surgery (Cardiothoracic Vascular Surgery); ATTEND Internal Medicine
DX: O14.95 Unspecified pre-eclampsia, complicating the puerperium (principal); I31.3 Pericardial effusion (noninflammatory); O99.63 Diseases of the digestive system complicating the puerperium; K21.9 Gastro-esophageal reflux disease without esophagitis; O99.285 Endocrine, nutritional and metabolic diseases complicating the puerperium; E28.2 Polycystic ovarian syndrome; O90.89 Other complications of the puerperium, not elsewhere classified; E87.6 Hypokalemia; Z91.018 Allergy to other foods; Z20.822 Contact with and (suspected) exposure to COVID-19

== ENCOUNTER → 2021-01-22 | Outpatient (CLI) | payer OTHER ==
[~2021-01-22] MED LIST changes: +COLC0.6T47 PO; +DOK100TA2 PO; +FURO40TA2 PO; +NIFE1TAB52 PO; +PANT40TA29 PO; +PRED20TA PO
--- NOTE | 2021-01-23 09:43 | ECHO ---
ECHOCARDIOGRAM DATE OF PROCEDURE: 01/22/2021 Age: 30 Gender: F Height: 69 inches Weight: 183 pounds Body Surface Area: 1.99 meters squared Outpatient REFERRING PHYSICIAN: ALONSO Holt INDICATION: Disease of pericardium (pericardial effusion), post high-dose steroid therapy MEASUREMENTS: 2D Measurements: RV - 3.2 cm LV - 4.7 cm Septum 1.1 cm Posterior wall 1.1 cm Aortic Root 2.8 cm LA - 4.1 cm LVEF 65% Doppler Measurements: AV - 1.6 m/s LVOT - 1.0 m/s LVOT diameter 2.0 cm MV-E 92, A 89, E/A ratio 1 Early mitral deceleration time 208 msec E prime medial 7.1, A prime medial 9.9, E prime lateral 10.4 PV - 1.0 m/s Pulmonary artery acceleration time 109 msec PASP 34 mmHg IVC - 1.7 cm COMMENTS: Normal sinus rhythm without any intraventricular conduction disturbance. M-mode and 2-dimensional echocardiography was performed with pulse, continuous wave, color flow and tissue Doppler studies. Normal left ventricular size, wall thickness and wall motion. Left atrial size upper limits of normal with currently normal Doppler assessment of left ventricular (LV) diastolic function and estimated mean left atrial pressure. Normal right hear chamber sizes and motion with a single Doppler sign of borderline pulmonary hypertension. Normal inferior vena cava (IVC) size and collapse against an elevated central venous pressure. Normal aortic dimensions. Normal-appearing aortic valve without functional abnormality. Normal-appearing mitral valvular apparatus with normal excursion and no posterior systolic buckling and only trace physiologic mitral insufficiency. Normal-appearing tricuspid valve with very mild insufficiency (physiologic). No apparent intracardiac mass. Miniscule posterior pericardial effusion measuring 0.3 cm. Comparing the above test findings with those of January 05, 2021 there has been a dramatic reduction in the size of the pericardial effusion. Respiratory flow patterns no longer vary with respiration and her inferior vena cava (IVC) size has reduced. Very dramatic response to steroid therapy.
== END ==
LOC: M CARPUL 13:41
PROVIDERS: ATTEND Physician Assistant
DX: I31.8 Other specified diseases of pericardium (principal)